=== PATIENT | male | born 1995 | race Caucasian/White ===

== ENCOUNTER → 2019-03-29 | Outpatient (CLI) | payer OTHER, SELFPAY ==
[2019-03-29 10:05] VITALS: BMI 32.1
== END | disposition home or self-care (01) ==
LOC: LABSPEC 14:39
PROVIDERS: Family Provider Pediatrics; PCP Pediatrics; Referring Provider Physician Assistant; Visit Provider Physician Assistant
DX: J02.9 Acute pharyngitis, unspecified (principal)
CPT/HCPCS: 87081

== ENCOUNTER → 2020-04-09 14:22 | Outpatient (CLI) | payer OTHER, SELFPAY ==
[2020-04-09 14:12] VITALS: BMI 31.6
--- NOTE | 2020-04-09 14:25 | RAD_ITS ---
STUDY: X-RAY CHEST REASON FOR EXAM: Male, 24 years old. Cough, pt states it feels like he has pneumonia TECHNIQUE: PA and lateral views of the chest. COMPARISON: Comparison is made with prior examination dated April 30, 2011. FINDINGS: The lungs are clear and expanded. There is no demonstrated pleural abnormality. Normal size heart. Normal mediastinum and ac. Normal visualized pulmonary arteries. Normal visualized aortic arch and descending thoracic aorta. Normal visualized thoracic spine. Normal visualized ribs, clavicles, and shoulders. There is no demonstrated abnormality of the visualized soft tissue structures of the upper abdomen. RAD/Chest PA and Lateral IMPRESSION: Normal x-ray examination of the chest. Electronically Signed: Nura Rubi, at 14:51 EDT , Service support ,
== END ==
PROVIDERS: PCP Pediatrics; Referring Provider Physician Assistant Surgical; Visit Provider Physician Assistant Surgical
DX: R05 Cough (principal)
CPT/HCPCS: 71046

== ENCOUNTER → 2021-06-19 10:28 | Outpatient (CLI) | payer OTHER, SELFPAY ==
[2021-06-19 12:47] LABS: Vitamin D,25 Hydroxy 31.2 ng/mL
[2021-06-19 13:05] LABS: Anion Gap 9 (5-15); BUN 18 mg/dL (7-18); BUN/Creat Ratio 17.3 RATIO (10-20); Calcium,Total 9.3 mg/dL (8.5-10.1); Chloride 103 mmol/L (98-107); Cholesterol 227 mg/dL (200); Creatinine, Serum 1.04 mg/dL (0.70-1.30); EST Glomerular Filtration Rate 94 mL/min (>60); Est Glom Filt Rate - Afr Amer 113 mL/min (>60); Glucose 88 mg/dL (74-106); High Density Lipoprotein 36 mg/dL; Potassium 3.8 mmol/L (3.5-5.1); Sodium Level 138 mmol/L (136-145); Thyroid Stim Hormone (TSH) 1.83 uIU/mL (0.358-3.74); Triglycerides 283 mg/dL; Very Low Density Lipoprotein 57 mg/dL (5-40)
== END ==
PROVIDERS: PCP Family Medicine; Referring Provider Family Medicine; Visit Provider Family Medicine
DX: Z00.00 Encounter for general adult medical examination without abnormal findings (principal); R68.82 Decreased libido
CPT/HCPCS: 36415; 80048; 80061; 82306; 84403; 84443

== ENCOUNTER → 2021-07-07 10:05 | Outpatient (CLI) | payer OTHER, SELFPAY ==
[2021-07-12 10:22] LABS: Testosterone Free 13.7 pg/mL (9.3-26.5)
== END ==
PROVIDERS: PCP Family Medicine; Referring Provider Family Medicine; Visit Provider Family Medicine
DX: R68.82 Decreased libido (principal)
CPT/HCPCS: 36415; 84402

== ENCOUNTER → 2021-07-14 09:52 | Outpatient (CLI) | payer OTHER, SELFPAY | PROVIDERS: PCP Family Medicine; Visit Provider Family Medicine | DX: R68.82 Decreased libido (principal) | CPT/HCPCS: 36415; 84403 ==

== ENCOUNTER → 2021-09-26 10:10 | Outpatient (CLI) | payer OTHER, SELFPAY | PROVIDERS: PCP Family Medicine; Referring Provider Family Medicine; Visit Provider Family Medicine | DX: R68.82 Decreased libido (principal) | CPT/HCPCS: 36415; 84403 ==

== ENCOUNTER 2022-01-30 11:05 | Outpatient (CLI) | payer OTHER, SELFPAY | END 2022-01-30 23:59 | disposition home or self-care (01) | PROVIDERS: PCP Family Medicine; Referring Provider Family Medicine; Visit Provider Family Medicine | DX: R68.82 Decreased libido (principal) | CPT/HCPCS: 36415; 84403 ==

== ENCOUNTER → 2023-11-10 | Outpatient (CLI) | payer BC, SELFPAY ==
[2023-11-10 17:37] LABS: Absolute Lymphocyte Count 1.78 X10^3/uL (0.83-4.51); Absolute Neutrophil Count 3.7 X10^3/uL (2.0-7.7); Basophil# 0.06 X10^3/uL; Basophil% 0.9 % (0-1); Eosinophil# 0.56 X10^3/uL; Eosinophils% 8.6 % (0-5); Hematocrit 44.5 % (40-54); Hemoglobin 15.4 g/dL (13.0-16.5); Lymphocyte # 1.78 X10^3/ul (0.83-4.51); Lymphocyte % 27.2 % (19-41); Mean Corp Hgb Conc 34.6 g/dL (32-36); Mean Corpuscular Hgb 30.1 pg (27.0-32.0); Mean Corpuscular Volume 86.9 fL (80-94); Mean Platelet Vol. 9.6 fl (6.2-12.0); Monocyte# 0.45 X10^3/uL; Monocyte% 6.9 % (0-10); NRBC Flagged by Analyzer 0 % (0-5); Neutrophil # 3.67 X10^3/uL (2.7-7.7); Neutrophil % 56.1 % (47-70); Platelet Count 255 K/mm3 (150-450); RBC Distribution Width CV 12.4 % (11.6-14.6); RBC Distribution Width SD 39.1 fl (35.1-43.9); Red Blood Count 5.12 M/mm3 (4.6-6.2); White Blood Count 6.5 K/mm3 (4.4-11.0)
[2023-11-10 18:10] LABS: Anion Gap 7 (5-15); BUN 9 mg/dL (7-18); BUN/Creat Ratio 8.2 RATIO (10-20); Calcium,Total 8.7 mg/dL (8.5-10.1); Chloride 107 mmol/L (98-107); Cholesterol 230 mg/dL (200); EST Glomerular Filtration Rate 86 mL/min (>60); Est Glom Filt Rate - Afr Amer 104 mL/min (>60); Glucose 94 mg/dL (74-106); High Density Lipoprotein 40 mg/dL; PSA,Total- Diagnostic 1.15 ng/mL (0.0-4.0); Potassium 3.7 mmol/L (3.5-5.1); Sodium Level 140 mmol/L (136-145); Triglycerides 193 mg/dL; Very Low Density Lipoprotein 39 mg/dL (5-40)
[2023-11-22 10:07] LABS: Testosterone, % Free 4.24 % (1.50-4.20); Testosterone, Free 44.22 ng/dL (5.00-21.00); Testosterone, Total 1043 ng/dL (264-916)
== END | disposition home or self-care (01) ==
LOC: MFPLAB 15:47
PROVIDERS: PCP Family Medicine; Visit Provider Family Medicine
DX: E29.1 Testicular hypofunction (principal); I10 Essential (primary) hypertension
CPT/HCPCS: 36415; 80048; 80061; 84153; 84402; 84403; 85025

== ENCOUNTER → 2024-05-10 | Outpatient (CLI) | payer BC, SELFPAY ==
[2024-05-10 17:42] LABS: Absolute Lymphocyte Count 1.74 X10^3/uL (0.83-4.51); Basophil# 0.04 X10^3/uL; Basophil% 0.7 % (0-1); Eosinophil# 0.42 X10^3/uL; Eosinophils% 7.5 % (0-5); Hematocrit 42.9 % (40-54); Hemoglobin 14.6 g/dL (13.0-16.5); Lymphocyte # 1.74 X10^3/ul (0.83-4.51); Lymphocyte % 31.2 % (19-41); Mean Corpuscular Hgb 29.7 pg (27.0-32.0); Mean Corpuscular Volume 87.2 fL (80-94); Mean Platelet Vol. 9.6 fl (6.2-12.0); Monocyte# 0.41 X10^3/uL; Monocyte% 7.3 % (0-10); NRBC Flagged by Analyzer 0 % (0-5); Neutrophil # 2.96 X10^3/uL (2.7-7.7); Neutrophil % 53.1 % (47-70); Platelet Count 244 K/mm3 (150-450); RBC Distribution Width CV 12.7 % (11.6-14.6); RBC Distribution Width SD 39.9 fl (35.1-43.9); Red Blood Count 4.92 M/mm3 (4.6-6.2); White Blood Count 5.6 K/mm3 (4.4-11.0)
[2024-05-10 17:53] LABS: ALB/GLOB Ratio 1.4 RATIO (0.9-2.4); AST(SGOT) 36 U/L (15-37); Alanine Aminotransfer ALT/SGPT 41 U/L (16-61); Albumin, Serum 4.3 g/dL (3.2-5.0); Alkaline Phosphatase 73 U/L (45-117); Anion Gap 8 (5-15); BUN 16 mg/dL (7-18); BUN/Creat Ratio 14.4 RATIO (10-20); Calcium,Total 9.2 mg/dL (8.5-10.1); Chloride 105 mmol/L (98-107); Cholesterol 191 mg/dL (200); Creatinine, Serum 1.11 mg/dL (0.70-1.30); EST Glomerular Filtration Rate 85 mL/min (>60); Est Glom Filt Rate - Afr Amer 103 mL/min (>60); Globulin 3.1 g/dL (2.2-4.2); Glucose 88 mg/dL (74-106); High Density Lipoprotein 40 mg/dL; Potassium 4.2 mmol/L (3.5-5.1); Protein, Total 7.4 g/dL (6.4-8.2); Sodium Level 138 mmol/L (136-145); Triglycerides 127 mg/dL; Very Low Density Lipoprotein 25 mg/dL (5-40)
== END | disposition home or self-care (01) ==
LOC: MFPLAB 13:57
PROVIDERS: PCP Family Medicine; Visit Provider Family Medicine
DX: E78.5 Hyperlipidemia, unspecified (principal)
CPT/HCPCS: 36415; 80053; 80061; 84403; 85025

== ENCOUNTER → 2024-06-22 | Outpatient (CLI) | payer BC, SELFPAY ==
[2024-06-22 17:55] LABS: Absolute Lymphocyte Count 1.51 X10^3/uL (0.83-4.51); Absolute Neutrophil Count 4.4 X10^3/uL (2.0-7.7); Basophil# 0.04 X10^3/uL; Basophil% 0.6 % (0-1); Eosinophil# 0.36 X10^3/uL; Eosinophils% 5.3 % (0-5); Hematocrit 44.2 % (40-54); Hemoglobin 15.1 g/dL (13.0-16.5); Lymphocyte # 1.51 X10^3/ul (0.83-4.51); Lymphocyte % 22.1 % (19-41); Mean Corp Hgb Conc 34.2 g/dL (32-36); Mean Corpuscular Hgb 30.4 pg (27.0-32.0); Mean Corpuscular Volume 88.9 fL (80-94); Mean Platelet Vol. 9.4 fl (6.2-12.0); Monocyte# 0.51 X10^3/uL; Monocyte% 7.5 % (0-10); NRBC Flagged by Analyzer 0 % (0-5); Neutrophil # 4.38 X10^3/uL (2.7-7.7); Neutrophil % 64.2 % (47-70); Platelet Count 260 K/mm3 (150-450); RBC Distribution Width CV 12.9 % (11.6-14.6); RBC Distribution Width SD 41.8 fl (35.1-43.9); Red Blood Count 4.97 M/mm3 (4.6-6.2); White Blood Count 6.8 K/mm3 (4.4-11.0)
== END | disposition home or self-care (01) ==
PROVIDERS: PCP Family Medicine; Visit Provider Family Medicine
DX: E29.1 Testicular hypofunction (principal)
CPT/HCPCS: 36415; 84403; 85025

== ENCOUNTER → 2024-10-25 | Outpatient (CLI) | payer BC, SELFPAY ==
[2024-10-25 17:49] LABS: Absolute Lymphocyte Count 1.66 X10^3/uL (0.83-4.51); Absolute Neutrophil Count 3.4 X10^3/uL (2.0-7.7); Basophil# 0.04 X10^3/uL; Basophil% 0.7 % (0-1); Eosinophil# 0.46 X10^3/uL; Eosinophils% 7.6 % (0-5); Lymphocyte # 1.66 X10^3/ul (0.83-4.51); Lymphocyte % 27.3 % (19-41); Mean Corp Hgb Conc 35.7 g/dL (32-36); Mean Corpuscular Hgb 29.7 pg (27.0-32.0); Mean Corpuscular Volume 83.2 fL (80-94); Mean Platelet Vol. 9.7 fl (6.2-12.0); Monocyte# 0.52 X10^3/uL; Monocyte% 8.5 % (0-10); NRBC Flagged by Analyzer 0 % (0-5); Neutrophil % 55.7 % (47-70); Platelet Count 237 K/mm3 (150-450); RBC Distribution Width CV 12.4 % (11.6-14.6); RBC Distribution Width SD 36.9 fl (35.1-43.9); Red Blood Count 5.05 M/mm3 (4.6-6.2); White Blood Count 6.1 K/mm3 (4.4-11.0)
[2024-10-25 18:17] LABS: Cholesterol 204 mg/dL (200); High Density Lipoprotein 45 mg/dL; Triglycerides 87 mg/dL; Very Low Density Lipoprotein 17 mg/dL (5-40)
== END | disposition home or self-care (01) ==
LOC: MTLAB 14:28
PROVIDERS: PCP Family Medicine; Referring Provider Family Medicine; Visit Provider Family Medicine
DX: E78.5 Hyperlipidemia, unspecified (principal)
CPT/HCPCS: 36415; 80061; 84403; 85025

== ENCOUNTER → 2025-03-01 | Outpatient (CLI) | payer BC, SELFPAY ==
[2025-03-01 15:27] LABS: Absolute Lymphocyte Count 1.44 X10^3/uL (0.83-4.51); Absolute Neutrophil Count 4.9 X10^3/uL (2.0-7.7); Basophil# 0.04 X10^3/uL; Basophil% 0.6 % (0-1); Eosinophil# 0.32 X10^3/uL; Eosinophils% 4.5 % (0-5); Hematocrit 45.3 % (40-54); Hemoglobin 16.2 g/dL (13.0-16.5); Lymphocyte # 1.44 X10^3/ul (0.83-4.51); Lymphocyte % 20.3 % (19-41); Mean Corp Hgb Conc 35.8 g/dL (32-36); Mean Corpuscular Hgb 29.8 pg (27.0-32.0); Mean Corpuscular Volume 83.4 fL (80-94); Mean Platelet Vol. 9.8 fl (6.2-12.0); Monocyte# 0.39 X10^3/uL; Monocyte% 5.5 % (0-10); NRBC Flagged by Analyzer 0 % (0-5); Neutrophil # 4.88 X10^3/uL (2.7-7.7); Neutrophil % 68.8 % (47-70); Platelet Count 262 K/mm3 (150-450); RBC Distribution Width SD 35.9 fl (35.1-43.9); Red Blood Count 5.43 M/mm3 (4.6-6.2); White Blood Count 7.1 K/mm3 (4.4-11.0)
[2025-03-01 16:20] LABS: ALB/GLOB Ratio 1.9 RATIO (0.9-2.4); AST(SGOT) 40 U/L (<=37); Alanine Aminotransfer ALT/SGPT 38 U/L (<=46); Albumin, Serum 4.9 g/dL (3.5-5.0); Alkaline Phosphatase 76 U/L (40-129); Anion Gap 14 (5-15); BUN 12 mg/dL (4-19); BUN/Creat Ratio 10.1 RATIO (10-20); Calcium,Total 9.3 mg/dL (7.6-11.0); Carbon Dioxide 21.5 mmol/L (21.0-32.0); Chloride 103 mmol/L (98-108); Cholesterol 156 mg/dL (<=200); Creatinine, Serum 1.22 mg/dL (0.70-1.20); EST Glomerular Filtration Rate 83 (>60); Globulin 2.5 g/dL (2.2-4.2); Glucose 92 mg/dL (70-99); High Density Lipoprotein 38 mg/dL; Low Density Lipoprotein Calc. 93 mg/dL; Protein, Total 7.4 g/dL (5.9-8.4); Sodium Level 138 mmol/L (133-145); Total Bilirubin 0.82 mg/dL (0.00-1.30); Triglycerides 127 mg/dL; Very Low Density Lipoprotein 25 mg/dL (5-40); cholesterol:hdl ratio screen 4.12
== END | disposition home or self-care (01) ==
LOC: MFPLAB 13:46
PROVIDERS: PCP Family Medicine; Referring Provider Family Medicine; Visit Provider Family Medicine
DX: E78.5 Hyperlipidemia, unspecified (principal)
CPT/HCPCS: 36415; 80053; 80061; 84403; 85025

== ENCOUNTER → 2025-10-19 | Outpatient (CLI) | payer BC, SELFPAY ==
--- OUTSIDE RECORDS SUMMARY | 2025-10-19 14:28 | XMS RPT_ITS | CCD ---
Author Organization [facility] Care Team Providers Care Allergist/Immunologist Physician Name Role Phone Unavailable Primary Care Provider UnavailRENÉ Conner Referring Unavailable Renetta DUNLAP, Dr. Merritt Primary Care Provider Renetta DUNLAP, Dr. Merritt Attending Provider [phone] Renetta DUNLAP, Dr. Merritt Referring Provider [phone] René Butts Attending Unavailable Renetta, René Primary Care Unavailable Renetta, René Attending Unavailable Renetta, René Referring Unavailable Renetta, René Primary Care Unavailable Renetta, René Attending Unavailable Renetta, René Referring Unavailable Renetta, René Primary Care Unavailable Renetta, René Attending Unavailable Renetta, René Primary Care Unavailable Allergies Allergy Classification Reported Allergen(s) Allergy Type Date of Onset Reaction(s) Facility (7 sources) Penicillins; Translations: [PENICILLINS] Allergy to substance 12-01-2005 [facility] Medications Current Medications Medication Drug Class(es) Dates Sig (Normalized) Sig (Original) azithromycin 250 mg oral tablet (6 sources) Macrolide Antimicrobial Start: 04-09-2020 End: 09-09-2020 Azithromycin 250 mg tablet Active 250 mg PO daily September 09, 2020 12:00am 2 tablets today, then 1 tablet daily on days 2 through 5 Start: 04-09-2020 End: 09-09-2020 take 2-5 tablets by mouth once daily Azithromycin 250 mg tablet Discontinued 0 PO .COMPLEX April 09, 2020 12:00am September 09, 2020 8:55am take 500 mg today (day 1), then 250 mg for 4 days (days 2-5) PO fluticasone propionate 0.05 mg/actuat metered dose nasal spray (5 sources) Corticosteroid Start: 09-09-2020 take 50 ug nasal route once daily Fluticasone Propionate (Flonase Allergy Relief) 50 mcg/actuation spray,suspension Active 1 NMA INTRANASAL DAILY September 09, 2020 12:00am administer into each nostril Start: 09-09-2020 take 1 spray(s) nasa l route once daily Fluticasone Propionate (Flonase Allergy Relief) 50 mcg/actuation spray,suspension Active 1 SPRAY INTRANASAL DAILY September 09, 2020 8:56am administer into each nostril Start: 12-20-2013 take 2 puff(s) by in halation twice daily fluticasone (FLOVENT HFA) 44 mcg/actuation inhaler Inhale 2 Puffs as instructed twice daily. 1 Inhaler 5 12/20/2013 Active Comment on above: Inhale 2 Puffs as in structed twice daily. Completed/Discontinued Medications Medication Drug Class(es) Dates Sig (Normalized) Sig (Original) [id number] actuat albuterol 0.09 mg/actuat metered dose inhaler (7 sources) beta2-Adrenergic Agonist Start: 11-02-2016 End: 03-29-2019 Albuterol Sulfate 1 INHALER inhaler Discontinued 1 - 2 NMA INHALATION EVERY 4 HOURS NEEDED as needed for Wheezing November 02, 2016 1:00am March 29, 2019 10:06am Start: 11-02-2016 End: 03-29-2019 take 1 puff(s) by inhalation every four hours as needed Albuterol Sulfate Discontinued 1 - 2 PUFF INHALATION EVERY 4 HOURS NEEDED November 02, 2016 9:27pm March 29, 2019 10:06am Start: 05-08-2015 take 2 puff(s) by in halation every four hours as needed albuterol HFA (PROVENTIL HFA, VENTOLIN HFA) 90 mcg/actuation inhaler Inhale 2 Puffs as instructed every 4 hours as needed. 1 Inhaler 4 05/08/2015 Active Start: 12-20-2013 take 2 puff(s) by in halation four times daily as needed for wheezing albuterol 90 mcg/actuation aero Indications: Exercise-induced asthma Inhale 2 Puffs as instructed four times daily as needed. FOR WHEEZING AND SHORTNESS OF BREATH. 1 Inhaler 2 12/20/2013 Active Comment on above: Inhale 2 Puffs as in structed four times daily as needed. FOR WHEEZING AND SHORTNESS OF BREATH. Inhale 2 Puffs as in structed every 4 hours as needed. cyclobenzaprine hydrochloride 10 mg oral tablet (3 sources) Muscle Relaxant Start: End: take 1 tablet by mouth three times daily as needed for muscle spasms Cyclobenzaprine 10 mg tablet Discontinued 10 mg PO THREE TIMES A DAY as needed for muscle spasm November 11, 2019 1:00am April 09, 2020 2:13pm No driving or operating heavy equipment while on this medication doxycycline hyclate 100 mg oral capsule (3 sources) Tetracycline-class Drug Start: End: take 1 capsule by mouth twice daily Doxycycline Hyclate 100 MG capsule Discontinued 100 mg PO TWICE A DAY November 02, 2016 1:00am March 29, 2019 10:06am ibuprofen 800 mg oral tablet (3 sources) Nonsteroidal Anti-inflammatory Drug Start: End: take 1 tablet by mouth three times daily Ibuprofen 800 mg tablet Discontinued 800 mg PO THREE TIMES A DAY November 11, 2019 1:00am April 09, 2020 2:13pm naproxen 500 mg oral tablet (2 sources) Nonsteroidal Anti-inflammatory Drug Start: take 1 tablet by mouth twice daily as needed for pain naproxen (NAPROSYN) 500 mg tablet Indications: Pain in right wrist Take 1 tablet by mouth twice daily as needed (pain/inflammation, take with food.). 30 tablet 0 05/03/2016 Active Comment on above: Take 1 tablet by [facility] twice daily as needed (pain/inflammation, take with food.). omeprazole 20 mg delayed release oral capsule (2 sources) Proton Pump Inhibitor Start: take 1 capsule by mouth once daily omeprazole 20 mg capsule Take 1 capsule by mouth once daily. 30 capsule 2 07/06/2014 Active Comment on above: Take 1 capsule by [facility] once daily. polymyxin b [id number] unt/ml / trimethoprim 1 mg/ml ophthalmic solution (6 sources) Dihydrofolate Reductase Inhibitor Antibacterial, Polymyxin-class Antibacterial Start: End: Polymyxin B Sulf-Trimethoprim (Polytrim) 10,000 unit- 1 mg/mL drops Discontinued 1 NMA OPHTHALMIC .qid 10 October 12, 2019 10:57am October 18, 2019 1:00am October 20, 2019 1:10am while awake; right eye, do not exceed 6 doses in 24 hours rosuvastatin calcium 5 mg oral tablet (2 sources) HMG-CoA Reductase Inhibitor take 1 tablet by mouth once daily rosuvastatin (CRESTOR) 5 mg tablet Take 5 mg by mouth once daily. 0 Active Comment on above: Take 5 mg by mouth o nce daily. testosterone cypionate 200 mg/ml injectable solution (2 sources) Androgen testosterone cypionate 200 mg/mL kit Inject intramuscularly one time a week. 0 Active Comment on above: Inject intramuscular ly one time a week. Problems Active Problems Problem Classification Problem Date Documented Date Episodic/Chronic Acute bronchitis (6 sources) Acute bronchitis; Translations: [Acute bronchitis, unspecified] 04-09-2020 Episodic Adjustment disorders (2 sources) Adjustment disorder; Translations: [Adjustment disorder, unspecified] Onset: 2011 2011 Chronic Administrative/social admission (3 sources) Administrative reason for encounter; Translations: [Encounter for other administrative examinations] 04-12-2020 Episodic Asthma (2 sources) Exercise-induced asthma; Translations: [Exercise induced bronchospasm] Onset: 12-05-2013 12-05-2013 Chronic Contraceptive and procreative management (2 sources) Patient encounter status; Translations: [Encounter for fertility testing] Episodic Disorders of lipid metabolism (1 source) Hyperlipidemia, unspecified; Translations: [Hyperlipidemia, unspecified] Onset: 03-02-2025 Chronic Other endocrine disorders (1 source) Testicular hypofunction; Translations: [Testicular hypofunction] Onset: 07-21-2024 Chronic Other lower respiratory disease (3 sources) Cough; Translations: [Cough] 04-09-2020 Episodic Other upper respiratory infections (6 sources) Upper respiratory infection; Translations: [Acute upper respiratory infection, unspecified] 03-29-2019 Episodic Sprains and strains (3 sources) Low back strain; Translations: [Strain of muscle, fascia and tendon of lower back, initial encounter] 11-11-2019 Episodic Past or Other Problems Problem Classification Problem Date Documented Da te Episodic/Chronic Other non-traumatic joint disorders (2 sources) Bilateral instability of shoulder joints; Translations: [Other instability, right shoulder] Onset: 05-21-2014 05-21-2014 Episodic Unclassified (2 sources) BB removed from upper lip 06-13-2022 Comment on above: 2014 Results Test Name Value Interpretation Reference Range Facility Absolute neutrophil countOrd ered By: René Butts on 03-01-2025 Neutrophils (Bld) [#/Vol] 4.9 10*3/uL 2.0-7.7 Anion gap in Serum or Plasma Ordered By: René Butts on 03-01-2025 Anion gap [Moles/Vol] 14 mmol/L 5-15 [facility] BUN/creatinine ratioOrdered By: René Butts on 03-01-2025 Urea nitrogen/Creatinine [Mass ratio] 10.1 mg/mg 10-20 Basophil percentageOrdered B y: René Butts on 03-01-2025 Basophils/100 WBC (Bld) 0.6 % 0-1 [facility] Bilirubin, totalOrdered By: René Butts on 03-01-2025 Bilirubin [Mass/Vol] 0.82 mg/dL 0.00-1.30 [facility] CBC W/Diff, Automatedon 02-13 Absolute Lymph 1.44 X10 3/uL Normal 0.83-4.51 Comment on above: Performed By: #### L 500.4100, L509.3001, L100.0100, L500.4050 #### Laboratory [address] [place], [address] Absolute Neut 4.9 X10 3/uL Normal 2.0-7.7 Comment on above: Performed By: #### L 500.4100, L509.3001, L100.0100, L500.4050 #### Laboratory [address] [place], [address] Basophils/100 WBC (Bld) 0.6 % Normal 0-1 [facility] Comment on above: Performed By: #### L 500.4100, L509.3001, L100.0100, L500.4050 #### Laboratory [address] [place], [address] Eosinophils/100 WBC (Bld) 4.5 % Normal 0-5 Comment on above: Performed By: #### L 500.4100, L509.3001, L100.0100, L500.4050 #### Laboratory [address] [place], [address] Erythrocyte distribution width (RBC) [Ratio] 12.0 % Normal 11.6-14.6 Comment on above: Performed By: #### L 500.4100, L509.3001, L100.0100, L500.4050 #### Laboratory [address] [place], [address] Hematocrit (Bld) [Volume fraction] 45.3 % Normal 40-54 Comment on above: Performed By: #### L 500.4100, L509.3001, L100.0100, L500.4050 #### Laboratory [address] [place], [address] Hemoglobin (Bld) [Mass/Vol] 16.2 g/dL Normal 13.0-16.5 Comment on above: Performed By: #### L 500.4100, L509.3001, L100.0100, L500.4050 #### Laboratory [address] [place], [address] IG% 0.300 Normal 0.0-0.9 Comment on above: Result Comment: IG% - Immature Granulocytes (promyelocytes, myelocytes and metamyelocytes) > 1% indicates that a LEFT SHIFT is Present. Performed By: #### L 500.4100, L509.3001, L100.0100, L500.4050 #### Laboratory [address] [place], [address] Lymphocytes/100 WBC (Bld) 20.3 % Normal 19-41 Comment on above: Performed By: #### L 500.4100, L509.3001, L100.0100, L500.4050 #### Laboratory [address] [place], [address] MCH (RBC) [Entitic mass] 29.8 pg Normal 27.0-32.0 Comment on above: Performed By: #### L 500.4100, L509.3001, L100.0100, L500.4050 #### Laboratory [address] [place], [address] MCHC (RBC) [Mass/Vol] 35.8 g/dL Normal 32-36 [facility] Comment on above: Performed By: #### L 500.4100, L509.3001, L100.0100, L500.4050 #### Laboratory [address] [place], [address] MCV (RBC) [Entitic vol] 83.4 fL Normal 80-94 [facility] Comment on above: Performed By: #### L 500.4100, L509.3001, L100.0100, L500.4050 #### Laboratory [address] [place], [address] Monocytes/100 WBC (Bld) 5.5 % Normal 0-10 [facility] Comment on above: Performed By: #### L 500.4100, L509.3001, L100.0100, L500.4050 #### Laboratory [address] [place], [address] Neutrophils/100 WBC (Bld) 68.8 % Normal 47-70 Comment on above: Performed By: #### L 500.4100, L509.3001, L100.0100, L500.4050 #### Laboratory [address] [place], [address] Nucleated RBC (Bld) [#/Vol] 0 10*3/uL Normal 0-5 Comment on above: Performed By: #### L 500.4100, L509.3001, L100.0100, L500.4050 #### Laboratory [address] [place], [address] Platelet mean volume (Bld) [Entitic vol] 9.8 fL Normal 6.2-12.0 Comment on above: Performed By: #### L 500.4100, L509.3001, L100.0100, L500.4050 #### Laboratory [address] [place], [address] Platelets (Bld) [#/Vol] 262 10*3/uL Normal 150-450 Comment on above: Performed By: #### L 500.4100, L509.3001, L100.0100, L500.4050 #### Laboratory [address] [place], [address] RBC (Bld) [#/Vol] 5.43 10*6/uL Normal 4.6-6.2 [facility] Comment on above: Performed By: #### L 500.4100, L509.3001, L100.0100, L500.4050 #### Laboratory [address] [place], [address] RDW SD 35.9 fl Normal 35.1-43.9 Comment on above: Performed By: #### L 500.4100, L509.3001, L100.0100, L500.4050 #### Laboratory [address] [place], [address] WBC (Bld) [#/Vol] 7.1 10*3/uL Normal 4.4-11.0 [facility] Comment on above: Performed By: #### L 500.4100, L509.3001, L100.0100, L500.4050 #### Laboratory [address] [place], [address] Calculated very low density lipoprotein (VLDL) cholesterol measurementOrdered By: René Butts on 03-01-2025 VLDL Cholesterol 25 mg/dL 5-40 Carbon dioxide, total [Moles /volume] in Central venous bloodOrdered By: René Butts on 03-01-2025 CO2 [Moles/Vol] 21.5 mmol/L 21.0-32.0 Chloride assayOrdered By: Tyler Butts on 03-01-2025 Chloride [Moles/Vol] 103 mmol/L 98-108 [facility] Comprehensive Metabolic Prof ilon 03-01-2025 Albumin [Mass/Vol] 4.9 g/dL Normal 3.5-5.0 [facility] Comment on above: Performed By: #### L 500.4100, L100.0100, L509.3000, L500.4050 #### Laboratory [address] [place], [address] Albumin/Globulin [Mass ratio] 1.9 {ratio} Normal 0.9-2.4 Comment on above: Performed By: #### L 500.4100, L100.0100, L509.3000, L500.4050 #### Laboratory [address] [place], [address] ALK PHOS 76 U/L Normal 40-129 Comment on above: Performed By: #### L 500.4100, L100.0100, L509.3000, L500.4050 #### Laboratory [address] [place], [address] ALT [Catalytic activity/Vol] 38 U/L Normal <=46 Comment on above: Performed By: #### L 500.4100, L100.0100, L509.3000, L500.4050 #### Laboratory [address] [place], [address] AST [Catalytic activity/Vol] 40 U/L High <=37 Comment on above: Performed By: #### L 500.4100, L100.0100, L509.3000, L500.4050 #### Laboratory [address] [place], [address] Bilirubin [Mass/Vol] 0.82 mg/dL Normal 0.00-1.30 [facility] Comment on above: Performed By: #### L 500.4100, L100.0100, L509.3000, L500.4050 #### Laboratory [address] [place], [address] BUN/CRE 10.1 RATIO Normal 10-20 Comment on above: Performed By: #### L 500.4100, L100.0100, L509.3000, L500.4050 #### Laboratory [address] [place], [address] Calcium [Mass/Vol] 9.3 mg/dL Normal 7.6-11.0 [facility] Comment on above: Performed By: #### L 500.4100, L100.0100, L509.3000, L500.4050 #### Laboratory [address] [place], [address] Chloride [Moles/Vol] 103 mmol/L Normal 98-108 [facility] Comment on above: Performed By: #### L 500.4100, L100.0100, L509.3000, L500.4050 #### Laboratory [address] [place], [address] CO2 [Moles/Vol] 21.5 mmol/L Normal 21.0-32.0 Comment on above: Performed By: #### L 500.4100, L100.0100, L509.3000, L500.4050 #### Laboratory [address] [place], [address] Creatinine [Mass/Vol] 1.22 mg/dL High 0.70-1.20 [facility] Comment on above: Performed By: #### L 500.4100, L100.0100, L509.3000, L500.4050 #### Laboratory [address] [place], [address] GAP 14 Normal 5-15 Comment on above: Performed By: #### L 500.4100, L100.0100, L509.3000, L500.4050 #### Laboratory [address] [place], [address] GFR/1.73 sq M.predicted among non-blacks MDRD (S/P/Bld) [Vol rate/Area] 83 mL/min/{1.73_m2} Normal >60 [facility] Comment on above: Result Comment: mL/m in/1.73m2 CKD-EPI Creatinine Equation (2020) Performed By: #### L 500.4100, L100.0100, L509.3000, L500.4050 #### Laboratory [address] [place], [address] Globulin (S) [Mass/Vol] 2.5 g/dL Normal 2.2-4.2 [facility] Comment on above: Performed By: #### L 500.4100, L100.0100, L509.3000, L500.4050 #### Laboratory [address] [place], [address] Glucose [Mass/Vol] 92 mg/dL Normal 70-99 [facility] Comment on above: Performed By: #### L 500.4100, L100.0100, L509.3000, L500.4050 #### Laboratory [address] [place], [address] Potassium [Moles/Vol] 4.0 mmol/L Normal 3.3-5.1 [facility] Comment on above: Performed By: #### L 500.4100, L100.0100, L509.3000, L500.4050 #### Laboratory [address] [place], [address] Sodium [Moles/Vol] 138 mmol/L Normal 133-145 [facility] Comment on above: Performed By: #### L 500.4100, L100.0100, L509.3000, L500.4050 #### Laboratory [address] [place], [address] T PROT 7.4 g/dL Normal 5.9-8.4 Comment on above: Performed By: #### L 500.4100, L100.0100, L509.3000, L500.4050 #### Laboratory [address] [place], [address] Urea nitrogen [Mass/Vol] 12 mg/dL Normal 4-19 Comment on above: Performed By: #### L 500.4100, L100.0100, L509.3000, L500.4050 #### Laboratory [address] [place], [address] Eosinophil percentageOrdered By: René Butts on 03-01-2025 Eosinophils/100 WBC (Bld) 4.5 % 0-5 Erythrocyte distribution wid th (RBC) [Ratio]Ordered By: René Butts on 03-01-2025 Erythrocyte distribution width (RBC) [Entitic vol] 35.9 fL 35.1-43.9 [facility] Erythrocyte distribution wid th ratioOrdered By: René Butts on 03-01-2025 Erythrocyte distribution width (RBC) [Ratio] 12.0 % 11.6-14.6 GFR/1.73 sq M.predicted manuela g non-blacks MDRD (S/P/Bld) [Vol rate/Area]Ordered By: René Butts on 03-01-2025 Estimated GFR (MDRD) Non-Af Amer 83 >60 Comment on above: mL/min/1.73m2 CKD-EP I Creatinine Equation (2020) Hematocrit Auto (Bld) [Volum e fraction]Ordered By: René Butts on 03-01-2025 Hematocrit (Bld) [Volume fraction] 45.3 % 40-54 Hemoglobin measurementOrdere d By: René Butts on 03-01-2025 Hemoglobin (Bld) [Mass/Vol] 16.2 g/dL 13.0-16.5 Immature granulocytes/100 WB C Auto (Bld)Ordered By: René Butts on 03-01-2025 Immature granulocytes/100 WBC (Bld) 0.300 % 0.0-0.9 Comment on above: IG% - Immature Granu locytes (promyelocytes, myelocytes and metamyelocytes) > 1% indicates that a LEFT SHIFT is Present. L509.3001on 03-01-2025 Testosterone [Mass/Vol] 186.00 ng/dL Low 300-1080 Comment on above: Performed By: #### L 500.4100, L100.0100, L509.3000, L500.4050 #### Laboratory [address] [place], [place], [id number] LDL calc ser/plasOrdered By: René Butts on 03-01-2025 LDL Cholesterol, Calculated 93 mg/dL Comment on above: Zlckbzzqwu=993-033 m g/dL & Higher Dliv=853 mg/dL or greater Laboratory - Chemistry and C hemistry - challengeOrdered By: René Butts on 03-01-2025 AST [Catalytic activity/Vol] 40 U/L High <38 Testosterone [Mass/Vol] 186.00 ng/dL Low 300-1080 Lipid Profileon 03-01-2025 CHOL:HDL 4.12 Normal Comment on above: Performed By: #### L 500.4100, L100.0100, L509.3000, L500.4050 #### Laboratory [address] [place], [address] Cholesterol [Mass/Vol] 156 mg/dL Normal <=200 [facility] Comment on above: Result Comment: Chol esterol level, Desirable <200 mg/dL Borderline high cholesterol 200-239 mg/dL High cholesterol >=240 mg/dL Recommendations of the NCEP Adult Treatment Panel for the following risk-cutoff thresholds for the [place] population. Performed By: #### L 500.4100, L100.0100, L509.3000, L500.4050 #### Laboratory [address] [place], [address] Cholesterol in HDL [Mass/Vol] 38 mg/dL Low Comment on above: Result Comment: [place] Cholesterol Education Program (NCEP) guidelines: <40 mg/dL: Low HDL-cholesterol (major risk factor for CHD) >= 60 mg/dL: High HDL-cholesterol (negative risk factor for CHD) HDL-cholesterol is affected by a number of factors, e.g. smoking, exercise, hormones, sex and age. Performed By: #### L 500.4100, L100.0100, L509.3000, L500.4050 #### Laboratory [address] [place], [address] Cholesterol in LDL [Mass/Vol] 93 mg/dL Normal Comment on above: Result Comment: Bord vimtnn=694-401 mg/dL Higher Iosx=852 mg/dL or greater Performed By: #### L 500.4100, L100.0100, L509.3000, L500.4050 #### Laboratory [address] [place], [address] Cholesterol in VLDL [Mass/Vol] 25 mg/dL Normal 5-40 Comment on above: Performed By: #### L 500.4100, L100.0100, L509.3000, L500.4050 #### Laboratory [address] [place], [address] Triglyceride [Mass/Vol] 127 mg/dL Normal [facility] Comment on above: Result Comment: The drugs N-Acetylcysteine and Metamizole may falsely depress this assay. Normal range: <150 mg/dL Borderline High: 150-199 mg/dL High: 200-499 mg/dL Very High: >500 mg/dL Performed By: #### L 500.4100, L100.0100, L509.3000, L500.4050 #### Laboratory [address] [place], [address] Lymphocytes Auto (Unsp spec) [#/Vol]Ordered By: René Butts on 03-01-2025 Lymphocytes (Bld) [#/Vol] 1.44 10*3/uL 0.83-4.5 1 Lymphocytes/100 WBC Auto (Un sp spec)Ordered By: René Butts on 03-01-2025 Lymphocytes/100 WBC (Bld) 20.3 % 19-41 MCV (mean corpuscular volume ) determinationOrdered By: René Butts on 03-01-2025 MCV (RBC) [Entitic vol] 83.4 fL 80-94 [facility] Mean corpuscular hemoglobin (MCH) determinationOrdered By: René Butts on 03-01-2025 MCH (RBC) [Entitic mass] 29.8 pg 27.0-32.0 Mean corpuscular hemoglobin concentration (MCHC) determinationOrdered By: René Butts on 03-01-2025 MCHC (RBC) [Mass/Vol] 35.8 g/dL 32-36 [facility] Mean platelet volume determi nationOrdered By: René Butts on 03-01-2025 Platelet mean volume (Bld) [Entitic vol] 9.8 fL 6.2-12.0 Monocyte percentageOrdered B y: René Butts on 03-01-2025 Monocytes/100 WBC (Bld) 5.5 % 0-10 [facility] Neutrophil percentageOrdered By: René Butts on 03-01-2025 Neutrophils/100 WBC (Bld) 68.8 % 47-70 Nucleated red blood cell per centageOrdered By: René Butts on 03-01-2025 Nucleated RBC/100 WBC (Bld) [Ratio] 0 % 0-5 Platelet countOrdered By: Tyler Butts on 03-01-2025 Platelets (Bld) [#/Vol] 262 10*3/uL 150-450 Potassium (Unsp spec) [Mass/ Vol]Ordered By: René Butts on 03-01-2025 Potassium [Moles/Vol] 4.0 mmol/L 3.3-5.1 [facility] RBC Auto (Bld) [#/Vol]Ordere d By: René Butts on 03-01-2025 RBC (Bld) [#/Vol] 5.43 10*6/uL 4.6-6.2 [facility] Screening total cholesterol/ high density lipoprotein (HDL) cholesterol ratioOrdered By: René Butts on 03-01-2025 Cholesterol.total/Cholest carlos in HDL [Mass ratio] 4.12 {ratio} Serum creatinine measurement (mass/volume)Ordered By: René Butts on 03-01-2025 Creatinine [Mass/Vol] 1.22 mg/dL High 0.70-1.20 [facility] Serum globulin measurementOr dered By: René Butts on 03-01-2025 Globulin (S) [Mass/Vol] 2.5 g/dL 2.2-4.2 [facility] Serum glucose measurement (m ass/volume)Ordered By: René Butts on 03-01-2025 Glucose [Mass/Vol] 92 mg/dL 70-99 [facility] Serum or plasma alanine linda otransferase (ALT) measurementOrdered By: René Butts on 03-01-2025 ALT [Catalytic activity/Vol] 38 U/L <47 Serum or plasma albumin walt urement (mass/volume)Ordered By: René Butts on 03-01-2025 Albumin [Mass/Vol] 4.9 g/dL 3.5-5.0 [facility] Serum or plasma albumin/glob ulin mass ratioOrdered By: René Butts on 03-01-2025 Albumin/Globulin [Mass ratio] 1.9 {ratio} 0.9-2.4 Serum or plasma alkaline deanna sphatase measurementOrdered By: René Butts on 03-01-2025 ALP [Catalytic activity/Vol] 76 U/L 40-129 Serum or plasma calcium walt urement (mass/volume)Ordered By: René Butts on 03-01-2025 Calcium [Mass/Vol] 9.3 mg/dL 7.6-11.0 [facility] Serum or plasma cholesterol in HDL measurement (mass/volume)Ordered By: René Butts on 03-01-2025 Cholesterol in HDL [Mass/Vol] 38 mg/dL Low >40 Comment on above: National Cholesterol Education Program (NCEP) guidelines:<40 mg/dL: Low HDL-cholesterol (major risk factor for CHD)>= 60 mg/dL: High HDL-cholesterol (negative risk factor for CHD)HDL-cholesterol is affected by a number of factors, e.g. smoking, exercise, hormones, sex and age. Serum or plasma cholesterol measurement (mass/volume)Ordered By: René Butts on 03-01-2025 Cholesterol [Mass/Vol] 156 mg/dL <201 [facility] Comment on above: Cholesterol level, D esirable <200 mg/dLBorderline high cholesterol 200-239 mg/dLHigh cholesterol >=240 mg/dLRecommendations of the NCEP Adult Treatment Panel for the following risk-cutoff thresholds for the [place] population. Serum or plasma urea nitroge n measurement (mass/volume)Ordered By: René Butts on 03-01-2025 Urea nitrogen [Mass/Vol] 12 mg/dL 4-19 Sodium levelOrdered By: René Butts on 03-01-2025 Sodium [Moles/Vol] 138 mmol/L 133-145 [facility] Total proteinOrdered By: Anahi Butts on 03-01-2025 Protein [Mass/Vol] 7.4 g/dL 5.9-8.4 [facility] Triglycerides measurementOrd ered By: René Butts on 03-01-2025 Triglyceride [Mass/Vol] 127 mg/dL <199 [facility] Comment on above: The drugs N-Acetylcy steine and Metamizole may falsely depress this assay. Normal range: <150 mg/dLBorderline High: 150-199 mg/dLHigh: 200-499 mg/dLVery High: >500 mg/dL White blood cell (WBC) count Ordered By: René Butts on 03-01-2025 WBC (Bld) [#/Vol] 7.1 10*3/uL 4.4-11.0 [facility] CBC W/Diff, Automatedon 12- Absolute Lymph 1.66 X10 3/uL Normal 0.83-4.51 Comment on above: Performed By: #### L 509.3000, L100.0100, L500.4100 #### Laboratory [address] [place], [address] Absolute Neut 3.4 X10 3/uL Normal 2.0-7.7 Comment on above: Performed By: #### L 509.3000, L100.0100, L500.4100 #### Laboratory [address] [place], [address] Basophils/100 WBC (Bld) 0.7 % Normal 0-1 [facility] Comment on above: Performed By: #### L 509.3000, L100.0100, L500.4100 #### Laboratory [address] [place], [address] Eosinophils/100 WBC (Bld) 7.6 % High 0-5 Comment on above: Performed By: #### L 509.3000, L100.0100, L500.4100 #### Laboratory [address] [place], [address] Erythrocyte distribution width (RBC) [Ratio] 12.4 % Normal 11.6-14.6 Comment on above: Performed By: #### L 509.3000, L100.0100, L500.4100 #### Laboratory [address] [place], [address] Hematocrit (Bld) [Volume fraction] 42.0 % Normal 40-54 Comment on above: Performed By: #### L 509.3000, L100.0100, L500.4100 #### Laboratory [address] [place], [address] Hemoglobin (Bld) [Mass/Vol] 15.0 g/dL Normal 13.0-16.5 Comment on above: Performed By: #### L 509.3000, L100.0100, L500.4100 #### Laboratory [address] [place], [address] IG% 0.200 Normal 0.0-0.9 Comment on above: Result Comment: IG% - Immature Granulocytes (promyelocytes, myelocytes and metamyelocytes) > 1% indicates that a LEFT SHIFT is Present. Performed By: #### L 509.3000, L100.0100, L500.4100 #### Laboratory [address] [place], [address] Lymphocytes/100 WBC (Bld) 27.3 % Normal 19-41 Comment on above: Performed By: #### L 509.3000, L100.0100, L500.4100 #### Laboratory [address] [place], [address] MCH (RBC) [Entitic mass] 29.7 pg Normal 27.0-32.0 Comment on above: Performed By: #### L 509.3000, L100.0100, L500.4100 #### Laboratory [address] [place], [address] MCHC (RBC) [Mass/Vol] 35.7 g/dL Normal 32-36 [facility] Comment on above: Performed By: #### L 509.3000, L100.0100, L500.4100 #### Laboratory [address] [place], [address] MCV (RBC) [Entitic vol] 83.2 fL Normal 80-94 [facility] Comment on above: Performed By: #### L 509.3000, L100.0100, L500.4100 #### Laboratory [address] [place], [address] Monocytes/100 WBC (Bld) 8.5 % Normal 0-10 [facility] Comment on above: Performed By: #### L 509.3000, L100.0100, L500.4100 #### Laboratory [address] [place], [address] Neutrophils/100 WBC (Bld) 55.7 % Normal 47-70 Comment on above: Performed By: #### L 509.3000, L100.0100, L500.4100 #### Laboratory [address] [place], [address] Nucleated RBC (Bld) [#/Vol] 0 10*3/uL Normal 0-5 Comment on above: Performed By: #### L 509.3000, L100.0100, L500.4100 #### Laboratory [address] [place], [address] Platelet mean volume (Bld) [Entitic vol] 9.7 fL Normal 6.2-12.0 Comment on above: Performed By: #### L 509.3000, L100.0100, L500.4100 #### Laboratory [address] [place], [address] Platelets (Bld) [#/Vol] 237 10*3/uL Normal 150-450 Comment on above: Performed By: #### L 509.3000, L100.0100, L500.4100 #### Laboratory [address] [place], [address] RBC (Bld) [#/Vol] 5.05 10*6/uL Normal 4.6-6.2 [facility] Comment on above: Performed By: #### L 509.3000, L100.0100, L500.4100 #### Laboratory [address] [place], [address] RDW SD 36.9 fl Normal 35.1-43.9 Comment on above: Performed By: #### L 509.3000, L100.0100, L500.4100 #### Laboratory [address] [place], [address] WBC (Bld) [#/Vol] 6.1 10*3/uL Normal 4.4-11.0 [facility] Comment on above: Performed By: #### L 509.3000, L100.0100, L500.4100 #### Laboratory [address] [place], [address] Lipid Profileon 10-25-2024 Cholesterol [Mass/Vol] 204 mg/dL High 200 [facility] Comment on above: Result Comment: <200 mg/dL Desirable 200-240 mg/dL Borderline >240 mg/dL High Risk Performed By: #### L 509.3000, L100.0100, L500.4100 #### Laboratory [address] [place], [address] Cholesterol in HDL [Mass/Vol] 45 mg/dL Normal Comment on above: Result Comment: The drugs N-Acetylcysteine and Metamizole may falsely depress this assay. Reference Range HDL <40 mg/dL Low HDL Cholesterol HDL >or= 60 mg/dL High HDL Cholesterol Performed By: #### L 509.3000, L100.0100, L500.4100 #### Laboratory [address] [place], [address] Cholesterol in LDL [Mass/Vol] 142 mg/dL High 0-130 Comment on above: Performed By: #### L 509.3000, L100.0100, L500.4100 #### Laboratory [address] [place], [address] Cholesterol in VLDL [Mass/Vol] 17 mg/dL Normal 5-40 Comment on above: Performed By: #### L 509.3000, L100.0100, L500.4100 #### Laboratory [address] [place], [address] Triglyceride [Mass/Vol] 87 mg/dL Normal [facility] Comment on above: Result Comment: The drugs N-Acetylcysteine and Metamizole may falsely depress this assay. Serum Triglycerides Reference Interval Normal <150 mg/dL Borderline high 150 - 199 mg/dL High 200 - 499 mg/dL Very High > or = 500 mg/dL Performed By: #### L 509.3000, L100.0100, L500.4100 #### Laboratory [address] [place], [address] Testosterone, Serum Totalon 10-25-2024 Testosterone [Mass/Vol] 213.77 ng/dL Normal Comment on above: Result Comment: CENT RAL 90% REFERENCE RANGES MALE AGE <50 197.44 - 669.58 ng/dL MALE AGE > or = 50 187.72 - 684.19 ng/dL FEMALE AGE <50 8.38 - 35.01 ng/dL FEMALE AGE > or = 50 <7.00 - 35.92 ng/dL Effective as of 06/10/21 Performed By: #### L 509.3000, L100.0100, L500.4100 #### Laboratory [address] [place], [address] CBC W/Diff, Automatedon 08-0 Absolute Lymph 1.51 X10 3/uL Normal 0.83-4.51 Comment on above: Performed By: #### L 509.3000, L100.0100 #### Laboratory [address] [place], [address] Absolute Neut 4.4 X10 3/uL Normal 2.0-7.7 Comment on above: Performed By: #### L 509.3000, L100.0100 #### Laboratory [address] [place], [address] Basophils/100 WBC (Bld) 0.6 % Normal 0-1 [facility] Comment on above: Performed By: #### L 509.3000, L100.0100 #### Laboratory [address] [place], [address] Eosinophils/100 WBC (Bld) 5.3 % High 0-5 Comment on above: Performed By: #### L 509.3000, L100.0100 #### Laboratory [address] [place], [address] Erythrocyte distribution width (RBC) [Ratio] 12.9 % Normal 11.6-14.6 Comment on above: Performed By: #### L 509.3000, L100.0100 #### Laboratory [address] [place], [address] Hematocrit (Bld) [Volume fraction] 44.2 % Normal 40-54 Comment on above: Performed By: #### L 509.3000, L100.0100 #### Laboratory [address] [place], [address] Hemoglobin (Bld) [Mass/Vol] 15.1 g/dL Normal 13.0-16.5 Comment on above: Performed By: #### L 509.3000, L100.0100 #### Laboratory [address] [place], [address] IG% 0.300 Normal 0.0-0.9 Comment on above: Result Comment: IG% - Immature Granulocytes (promyelocytes, myelocytes and metamyelocytes) > 1% indicates that a LEFT SHIFT is Present. Performed By: #### L 509.3000, L100.0100 #### Laboratory [address] [place], [address] Lymphocytes/100 WBC (Bld) 22.1 % Normal 19-41 Comment on above: Performed By: #### L 509.3000, L100.0100 #### Laboratory [address] [place], [address] MCH (RBC) [Entitic mass] 30.4 pg Normal 27.0-32.0 Comment on above: Performed By: #### L 509.3000, L100.0100 #### Laboratory [address] [place], [address] MCHC (RBC) [Mass/Vol] 34.2 g/dL Normal 32-36 [facility] Comment on above: Performed By: #### L 509.3000, L100.0100 #### Laboratory [address] [place], [address] MCV (RBC) [Entitic vol] 88.9 fL Normal 80-94 [facility] Comment on above: Performed By: #### L 509.3000, L100.0100 #### Laboratory [address] [place], [address] Monocytes/100 WBC (Bld) 7.5 % Normal 0-10 [facility] Comment on above: Performed By: #### L 509.3000, L100.0100 #### Laboratory [address] [place], [address] Neutrophils/100 WBC (Bld) 64.2 % Normal 47-70 Comment on above: Performed By: #### L 509.3000, L100.0100 #### Laboratory [address] [place], [address] Nucleated RBC (Bld) [#/Vol] 0 10*3/uL Normal 0-5 Comment on above: Performed By: #### L 509.3000, L100.0100 #### Laboratory [address] [place], [address] Platelet mean volume (Bld) [Entitic vol] 9.4 fL Normal 6.2-12.0 Comment on above: Performed By: #### L 509.3000, L100.0100 #### Laboratory [address] [place], [address] Platelets (Bld) [#/Vol] 260 10*3/uL Normal 150-450 Comment on above: Performed By: #### L 509.3000, L100.0100 #### Laboratory [address] [place], [address] RBC (Bld) [#/Vol] 4.97 10*6/uL Normal 4.6-6.2 [facility] Comment on above: Performed By: #### L 509.3000, L100.0100 #### Laboratory [address] [place], [address] RDW SD 41.8 fl Normal 35.1-43.9 Comment on above: Performed By: #### L 509.3000, L100.0100 #### Laboratory [address] [place], [address] WBC (Bld) [#/Vol] 6.8 10*3/uL Normal 4.4-11.0 [facility] Comment on above: Performed By: #### L 509.3000, L100.0100 #### Laboratory [address] [place], [address] Testosterone, Serum Totalon 06-22-2024 Testosterone [Mass/Vol] 1155.43 ng/dL Normal Comment on above: Result Comment: CENT RAL 90% REFERENCE RANGES MALE AGE <50 197.44 - 669.58 ng/dL MALE AGE > or = 50 187.72 - 684.19 ng/dL FEMALE AGE <50 8.38 - 35.01 ng/dL FEMALE AGE > or = 50 <7.00 - 35.92 ng/dL Effective as of 06/10/21 Performed By: #### L 509.3000, L100.0100 #### Laboratory [address] [place], [address] CBC W/Diff, Automatedon - Absolute Lymph 1.74 X10 3/uL Normal 0.83-4.51 Comment on above: Performed By: #### L 500.4100, L100.0100, L509.3000, L500.4050 #### Laboratory [address] [place], [address] Absolute Neut 3.0 X10 3/uL Normal 2.0-7.7 Comment on above: Performed By: #### L 500.4100, L100.0100, L509.3000, L500.4050 #### Laboratory [address] [place], [address] Basophils/100 WBC (Bld) 0.7 % Normal 0-1 [facility] Comment on above: Performed By: #### L 500.4100, L100.0100, L509.3000, L500.4050 #### Laboratory [address] [place], [address] Eosinophils/100 WBC (Bld) 7.5 % High 0-5 Comment on above: Performed By: #### L 500.4100, L100.0100, L509.3000, L500.4050 #### Laboratory [address] [place], [address] Erythrocyte distribution width (RBC) [Ratio] 12.7 % Normal 11.6-14.6 Comment on above: Performed By: #### L 500.4100, L100.0100, L509.3000, L500.4050 #### Laboratory [address] [place], [address] Hematocrit (Bld) [Volume fraction] 42.9 % Normal 40-54 Comment on above: Performed By: #### L 500.4100, L100.0100, L509.3000, L500.4050 #### Laboratory [address] [place], [address] Hemoglobin (Bld) [Mass/Vol] 14.6 g/dL Normal 13.0-16.5 Comment on above: Performed By: #### L 500.4100, L100.0100, L509.3000, L500.4050 #### Laboratory [address] [place], [address] IG% 0.200 Normal 0.0-0.9 Comment on above: Result Comment: IG% - Immature Granulocytes (promyelocytes, myelocytes and metamyelocytes) > 1% indicates that a LEFT SHIFT is Present. Performed By: #### L 500.4100, L100.0100, L509.3000, L500.4050 #### Laboratory [address] [place], [address] Lymphocytes/100 WBC (Bld) 31.2 % Normal 19-41 Comment on above: Performed By: #### L 500.4100, L100.0100, L509.3000, L500.4050 #### Laboratory [address] [place], [address] MCH (RBC) [Entitic mass] 29.7 pg Normal 27.0-32.0 Comment on above: Performed By: #### L 500.4100, L100.0100, L509.3000, L500.4050 #### Laboratory [address] [place], [address] MCHC (RBC) [Mass/Vol] 34.0 g/dL Normal 32-36 [facility] Comment on above: Performed By: #### L 500.4100, L100.0100, L509.3000, L500.4050 #### Laboratory [address] [place], [address] MCV (RBC) [Entitic vol] 87.2 fL Normal 80-94 [facility] Comment on above: Performed By: #### L 500.4100, L100.0100, L509.3000, L500.4050 #### Laboratory [address] [place], [address] Monocytes/100 WBC (Bld) 7.3 % Normal 0-10 [facility] Comment on above: Performed By: #### L 500.4100, L100.0100, L509.3000, L500.4050 #### Laboratory [address] [place], [address] Neutrophils/100 WBC (Bld) 53.1 % Normal 47-70 Comment on above: Performed By: #### L 500.4100, L100.0100, L509.3000, L500.4050 #### Laboratory [address] [place], [address] Nucleated RBC (Bld) [#/Vol] 0 10*3/uL Normal 0-5 Comment on above: Performed By: #### L 500.4100, L100.0100, L509.3000, L500.4050 #### Laboratory [address] [place], [address] Platelet mean volume (Bld) [Entitic vol] 9.6 fL Normal 6.2-12.0 Comment on above: Performed By: #### L 500.4100, L100.0100, L509.3000, L500.4050 #### Laboratory [address] [place], [address] Platelets (Bld) [#/Vol] 244 10*3/uL Normal 150-450 Comment on above: Performed By: #### L 500.4100, L100.0100, L509.3000, L500.4050 #### Laboratory [address] [place], [address] RBC (Bld) [#/Vol] 4.92 10*6/uL Normal 4.6-6.2 [facility] Comment on above: Performed By: #### L 500.4100, L100.0100, L509.3000, L500.4050 #### Laboratory [address] [place], [address] RDW SD 39.9 fl Normal 35.1-43.9 Comment on above: Performed By: #### L 500.4100, L100.0100, L509.3000, L500.4050 #### Laboratory [address] [place], [address] WBC (Bld) [#/Vol] 5.6 10*3/uL Normal 4.4-11.0 [facility] Comment on above: Performed By: #### L 500.4100, L100.0100, L509.3000, L500.4050 #### Laboratory [address] [place], [address] Comprehensive Metabolic Prof [facility] 05-10-2024 Albumin [Mass/Vol] 4.3 g/dL Normal 3.2-5.0 [facility] Comment on above: Performed By: #### L 500.4100, L100.0100, L509.3000, L500.4050 #### Laboratory [address] [place], [address] Albumin/Globulin [Mass ratio] 1.4 {ratio} Normal 0.9-2.4 Comment on above: Performed By: #### L 500.4100, L100.0100, L509.3000, L500.4050 #### Laboratory [address] [place], [address] ALK P 73 U/L Normal 45-117 Comment on above: Performed By: #### L 500.4100, L100.0100, L509.3000, L500.4050 #### Laboratory [address] [place], [address] ALT [Catalytic activity/Vol] 41 U/L Normal 16-61 Comment on above: Performed By: #### L 500.4100, L100.0100, L509.3000, L500.4050 #### Laboratory [address] [place], [address] AST [Catalytic activity/Vol] 36 U/L Normal 15-37 Comment on above: Performed By: #### L 500.4100, L100.0100, L509.3000, L500.4050 #### Laboratory [address] [place], [address] Bilirubin [Mass/Vol] 0.90 mg/dL Normal 0.20-1.00 [facility] Comment on above: Result Comment: For patients on eltrombopag therapy, use of Dimension Poneto TBIL is not recommended. Performed By: #### L 500.4100, L100.0100, L509.3000, L500.4050 #### Laboratory [address] [place], [address] BUN/CRE 14.4 RATIO Normal 10-20 Comment on above: Performed By: #### L 500.4100, L100.0100, L509.3000, L500.4050 #### Laboratory [address] [place], [address] CA,Total 9.2 mg/dL Normal 8.5-10.1 Comment on above: Performed By: #### L 500.4100, L100.0100, L509.3000, L500.4050 #### Laboratory [address] [place], [address] Chloride [Moles/Vol] 105 mmol/L Normal 98-107 [facility] Comment on above: Performed By: #### L 500.4100, L100.0100, L509.3000, L500.4050 #### Laboratory [address] [place], [address] CO2 [Moles/Vol] 25.0 mmol/L Normal 21.0-32.0 Comment on above: Performed By: #### L 500.4100, L100.0100, L509.3000, L500.4050 #### Laboratory [address] [place], [address] Creatinine [Mass/Vol] 1.11 mg/dL Normal 0.70-1.30 [facility] Comment on above: Result Comment: The validity of the calculated GFR GFRAA in patients over 70 years has not been determined. Clinical correlation is essential. Performed By: #### L 500.4100, L100.0100, L509.3000, L500.4050 #### Laboratory [address] [place], [address] EST GFR - AA 103 mL/min Normal >60 Comment on above: Result Comment: Afri can [place] GFR Calc Performed By: #### L 500.4100, L100.0100, L509.3000, L500.4050 #### Laboratory [address] [place], [address] GAP 8 Normal 5-15 Comment on above: Performed By: #### L 500.4100, L100.0100, L509.3000, L500.4050 #### Laboratory [address] [place], [address] GFR/1.73 sq M.predicted among non-blacks MDRD (S/P/Bld) [Vol rate/Area] 85 mL/min/{1.73_m2} Normal >60 [facility] Comment on above: Result Comment: Non- GFR Calc Performed By: #### L 500.4100, L100.0100, L509.3000, L500.4050 #### Laboratory [address] [place], [address] Globulin (S) [Mass/Vol] 3.1 g/dL Normal 2.2-4.2 [facility] Comment on above: Performed By: #### L 500.4100, L100.0100, L509.3000, L500.4050 #### Laboratory [address] [place], [address] Glucose [Mass/Vol] 88 mg/dL Normal 74-106 [facility] Comment on above: Performed By: #### L 500.4100, L100.0100, L509.3000, L500.4050 #### Laboratory [address] [place], [address] Potassium [Moles/Vol] 4.2 mmol/L Normal 3.5-5.1 [facility] Comment on above: Performed By: #### L 500.4100, L100.0100, L509.3000, L500.4050 #### Laboratory [address] [place], [address] Sodium [Moles/Vol] 138 mmol/L Normal 136-145 [facility] Comment on above: Performed By: #### L 500.4100, L100.0100, L509.3000, L500.4050 #### Laboratory [address] [place], [address] T PROT 7.4 g/dL Normal 6.4-8.2 Comment on above: Performed By: #### L 500.4100, L100.0100, L509.3000, L500.4050 #### Laboratory [address] [place], [address] Urea nitrogen [Mass/Vol] 16 mg/dL Normal 7-18 Comment on above: Performed By: #### L 500.4100, L100.0100, L509.3000, L500.4050 #### Laboratory [address] [place], [address] Lipid Profileon 05-10-2024 Cholesterol [Mass/Vol] 191 mg/dL Normal 200 [facility] Comment on above: Result Comment: <200 mg/dL Desirable 200-240 mg/dL Borderline >240 mg/dL High Risk Performed By: #### L 500.4100, L100.0100, L509.3000, L500.4050 #### Laboratory [address] [place], [address] Cholesterol in HDL [Mass/Vol] 40 mg/dL Normal Comment on above: Result Comment: The drugs N-Acetylcysteine and Metamizole may falsely depress this assay. Reference Range HDL <40 mg/dL Low HDL Cholesterol HDL >or= 60 mg/dL High HDL Cholesterol Performed By: #### L 500.4100, L100.0100, L509.3000, L500.4050 #### Laboratory [address] [place], [address] Cholesterol in LDL [Mass/Vol] 126 mg/dL Normal 0-130 Comment on above: Performed By: #### L 500.4100, L100.0100, L509.3000, L500.4050 #### Laboratory [address] [place], [address] Cholesterol in VLDL [Mass/Vol] 25 mg/dL Normal 5-40 Comment on above: Performed By: #### L 500.4100, L100.0100, L509.3000, L500.4050 #### Laboratory [address] [place], [address] Triglyceride [Mass/Vol] 127 mg/dL Normal [facility] Comment on above: Result Comment: The drugs N-Acetylcysteine and Metamizole may falsely depress this assay. Serum Triglycerides Reference Interval Normal <150 mg/dL Borderline high 150 - 199 mg/dL High 200 - 499 mg/dL Very High > or = 500 mg/dL Performed By: #### L 500.4100, L100.0100, L509.3000, L500.4050 #### Laboratory [address] [place], [address] Testosterone, Serum Totalon 05-10-2024 Testosterone [Mass/Vol] 144.98 ng/dL Normal Comment on above: Result Comment: CENT RAL 90% REFERENCE RANGES MALE AGE <50 197.44 - 669.58 ng/dL MALE AGE > or = 50 187.72 - 684.19 ng/dL FEMALE AGE <50 8.38 - 35.01 ng/dL FEMALE AGE > or = 50 <7.00 - 35.92 ng/dL Effective as of 06/10/21 Performed By: #### L 500.4100, L100.0100, L509.3000, L500.4050 #### Laboratory [address] [place], [address] Absolute lymphocyte countOrd ered By: René Butts on 11-10-2023 Lymphocytes Auto (Unsp spec) [#/Vol] 1.78 10*3/uL 0.83-4.51 Basophil percentageOrdered B y: René Butts on 11-10-2023 Basophils/100 WBC (Bld) 0.9 % 0-1 [facility] Chloride [Moles/Vol] 107 mmol/L 98-107 [facility] Cholesterol [Mass/Vol] 230 mg/dL <200 [facility] Comment on above: <200 mg/dL Desirable 200-240 mg/dL Borderline >240 mg/dL High Risk Eosinophils/100 WBC (Bld) 8.6 % 0-5 Glucose [Mass/Vol] 94 mg/dL 74-106 [facility] Neutrophils (Bld) [#/Vol] 3.7 10*3/uL 2.0-7.7 Neutrophils/100 WBC (Bld) 56.1 % 47-70 Potassium [Moles/Vol] 3.7 mmol/L 3.5-5.1 [facility] Sodium [Moles/Vol] 140 mmol/L 136-145 [facility] Triglyceride [Mass/Vol] 193 mg/dL <199 [facility] Comment on above: The drugs N-Acetylcy steine and Metamizole may falsely depress this assay.Serum Triglycerides Reference Interval Normal <150 mg/dL Borderline high 150 - 199 mg/dL High 200 - 499 mg/dL Very High > or = 500 mg/dL WBC (Bld) [#/Vol] 6.5 10*3/uL 4.4-11.0 [facility] Blood erythrocytes count (nu mber/volume)Ordered By: René Butts on 11-10-2023 RBC (Bld) [#/Vol] 5.12 10*6/uL 4.6-6.2 [facility] Blood hemoglobin measurement (mass/volume)Ordered By: René Butts on 11-10-2023 Hemoglobin (Bld) [Mass/Vol] 15.4 g/dL 13.0-16.5 Blood lymphocytes/100 leukoc ytesOrdered By: René Butts on 11-10-2023 Lymphocytes/100 WBC (Bld) 27.2 % 19-41 Blood monocytes/100 leukocyt esOrdered By: René Butts on 11-10-2023 Monocytes/100 WBC (Bld) 6.9 % 0-10 [facility] Blood platelet mean volumeOr dered By: René Butts on 11-10-2023 Platelet mean volume (Bld) [Entitic vol] 9.6 fL 6.2-12.0 Determination of erythrocyte mean corpuscular volume (MCV)Ordered By: René Butts on 11-10-2023 MCV (RBC) [Entitic vol] 86.9 fL 80-94 [facility] Hematocrit Auto (Bld) [Volum e fraction]Ordered By: René Butts on 11-10-2023 Hematocrit (Bld) [Volume fraction] 44.5 % 40-54 Laboratory - Chemistry and C hemistry - challengeOrdered By: René Butts on 11-10-2023 CO2 [Moles/Vol] 26.0 mmol/L 21.0-32.0 Urea nitrogen/Creatinine [Mass ratio] 8.2 mg/mg 10-20 Laboratory - Hematology and Cell countsOrdered By: René Butts on 11-10-2023 Erythrocyte distribution width (RBC) [Entitic vol] 39.1 fL 35.1-43.9 [facility] Erythrocyte distribution width (RBC) [Ratio] 12.4 % 11.6-14.6 Immature granulocytes/100 WBC (Bld) 0.300 % 0.0-0.9 Comment on above: IG% - Immature Granu locytes (promyelocytes, myelocytes and metamyelocytes) > 1% indicates that a LEFT SHIFT is Present. MCH (RBC) [Entitic mass] 30.1 pg 27.0-32.0 Nucleated RBC/100 WBC (Bld) [Ratio] 0 % 0-5 MCHC Auto (RBC) [Mass/Vol]Or dered By: René Butts on 11-10-2023 MCHC (RBC) [Mass/Vol] 34.6 g/dL 32-36 [facility] No Panel InformationOrdered By: René Butts on 11-10-2023 Estimated GFR (MDRD) Amer 104 mL/min >60 Comment on above: GFR Calc Estimated GFR (MDRD) Non-Af Amer 86 mL/min >60 Comment on above: Non- GFR Calc Prostate Specific Antigen Total 1.15 ng/mL 0.0-4.0 Comment on above: This test was perfor med using the TPSA assay method for the[employer] chemistry system. Values obtained with differentassay methods cannot be used interchangably.When changing PSA assays in the course of monitoring apatient, additional sequential testing should be carriedout to confirm baseline values. Platelets bldOrdered By: Anahi Butts on 11-10-2023 Platelets (Bld) [#/Vol] 255 10*3/uL 150-450 Serum or plasma calcium walt urement (mass/volume)Ordered By: René Butts on 11-10-2023 Calcium [Mass/Vol] 8.7 mg/dL 8.5-10.1 [facility] Serum or plasma cholesterol in HDL measurement (mass/volume)Ordered By: René Butts on 11-10-2023 Cholesterol in HDL [Mass/Vol] 40 mg/dL >40 Comment on above: The drugs N-Acetylcy steine and Metamizole may falsely depress this assay. Reference Range HDL <40 mg/dL Low HDL Cholesterol HDL >or= 60 mg/dL High HDL Cholesterol Serum or plasma cholesterol in VLDL measurement (mass/volume)Ordered By: René Butts on 11-10-2023 Cholesterol in VLDL [Mass/Vol] 39 mg/dL 5-40 Serum or plasma creatinine m easurement (mass/volume)Ordered By: René Butts on 11-10-2023 Creatinine [Mass/Vol] 1.10 mg/dL 0.70-1.30 [facility] Comment on above: The validity of the calculated GFR & GFRAA in patients over 70 years has not been determined. Clinical correlation is essential. Serum or plasma low density lipoprotein (LDL) cholesterol measurement (mass/volume)Ordered By: René Butts on 11-10-2023 Cholesterol in LDL [Mass/Vol] 151 mg/dL 0-130 Serum or plasma urea nitroge n measurement (mass/volume)Ordered By: René Butts on 11-10-2023 Urea nitrogen [Mass/Vol] 9 mg/dL 7-18 Thin prep Papanicolaou smear with manual screeningOrdered By: René Butts on 11-10-2023 Thin prep Papanicolaou smear with manual screening 7 5-15 BASIC SEMEN ANALYSISon 12-30 Collection time (Kat) [Date/time] 1220 Normal [facility] Comment on above: Order Comment: Speci men Type: SEMINAL FLUID SPECIMEN Ordering Facility: [facility] Address: [address] [address] Result Comment: 1310 Performed By: #### B ASA #### [facility] CLIA [id number] [address] [place] [address] Color (Kat) Clear Normal [facility] Comment on above: Order Comment: Speci men Type: SEMINAL FLUID SPECIMEN Ordering Facility: [facility] Address: [address] [address] Performed By: #### B ASA #### [facility] CLIA [id number] [address] [place] [address] DATE OF ANALYSIS 12/30/2022 Normal [facility] Comment on above: Order Comment: Speci men Type: SEMINAL FLUID SPECIMEN Ordering Facility: [facility] Address: [address] [address] Performed By: #### B ASA #### [facility] CLIA [id number] [facility] [place] [address] PARTNER INFORMATION Routine semen analysis Normal [facility] Comment on above: Order Comment: Speci men Type: SEMINAL FLUID SPECIMEN Ordering Facility: [facility] Address: [address] [address] Performed By: #### B ASA #### [facility] CLIA [id number] [address] [place] [address] pH (Kat) 7.2 Normal >=7.2 [facility] Comment on above: Order Comment: Speci men Type: SEMINAL FLUID SPECIMEN Ordering Facility: [facility] Address: [address] [address] Performed By: #### B ASA #### [facility] CLIA [id number] [address] [place] [address] Round cells (Kat) [#/Vol] 0.00 M/mL Normal <1.00 [facility] Comment on above: Order Comment: Speci men Type: SEMINAL FLUID SPECIMEN Ordering Facility: [facility] Address: [address] [place] [address] Performed By: #### B ASA #### [facility] CLIA [id number] [address] [place] [address] SEMEN COMMENT 2 Partner=Kroi Fraser Normal [facility] Comment on above: Order Comment: Speci men Type: SEMINAL FLUID SPECIMEN Ordering Facility: [facility] Address: [address] [address] Performed By: #### B ASA #### [facility] CLIA [id number] [facility] [place] [address] Sexual abstinence duration [Time] 3.0 Days [facility] Comment on above: Order Comment: Speci men Type: SEMINAL FLUID SPECIMEN Ordering Facility: [facility] Address: [address] [address] Performed By: #### B ASA #### [facility] CLIA [id number] [address] [place] [address] Specimen volume (Kat) 4.20 mL Normal >=1.50 [facility] Comment on above: Order Comment: Speci men Type: SEMINAL FLUID SPECIMEN Ordering Facility: [facility] Address: [address] [address] Performed By: #### B ASA #### [facility] CLIA [id number] [address] [place] [address] Spermatozoa (Kat) [#/Vol] 0.00 M/mL Low >=15.00 [facility] Comment on above: Order Comment: Speci men Type: SEMINAL FLUID SPECIMEN Ordering Facility: [facility] Address: [address] [place] [address] Result Comment: 0.00 Performed By: #### B ASA #### [facility] CLIA [id number] [address] [place] [address] Spermatozoa Motile/100 spermatozoa (Kat) 0 % Low >=40 [facility] Comment on above: Order Comment: Speci men Type: SEMINAL FLUID SPECIMEN Ordering Facility: [facility] Address: [address] [address] Performed By: #### B ASA #### [facility] CLIA [id number] [address] [place] [address] Spermatozoa Normal/100 spermatozoa (Kat) Normal [facility] Comment on above: Order Comment: Speci men Type: SEMINAL FLUID SPECIMEN Ordering Facility: [facility] Address: [address] [address] Result Comment: Insu fficient quantity to assess morphology Performed By: #### B ASA #### [facility] CLIA [id number] [address] [place] [address] TIME TO ANALYSIS 50 Minutes Normal 0-60 [facility] Comment on above: Order Comment: Speci men Type: SEMINAL FLUID SPECIMEN Ordering Facility: [facility] Address: [address] [address] Performed By: #### B ASA #### [facility] IA [id number] [address] [place] [address] TOTAL MOTILE SPERM 0.00 M Normal [facility] Comment on above: Order Comment: Speci men Type: SEMINAL FLUID SPECIMEN Ordering Facility: [facility] Address: [address] [address] Performed By: #### B ASA #### [facility] CLIA [id number] [address] [place] [address] Viscosity Ql (Kat) Normal Normal [facility] Comment on above: Order Comment: Speci men Type: SEMINAL FLUID SPECIMEN Ordering Facility: [facility] Address: [address] [address] Performed By: #### B ASA #### [facility] IA [id number] [address] [place] [address] CNOVon 12-30-2022 CNOV Office Visit (ANDRBA) ---- WADE MCNAMARA ([id number]) 1995 M Date Time Provider Department 12/30/22 1:00 PM ANDROLOGY OFFSET PRESS OPERATOR SOFI LANDAVERDE During your visit today, we recorded the following information about you: Tab Dixon 12/30/2022 2:52 PM Signed Routine semen analysis. Tab Dixon Referring Provider: RENÉ BUTTS [[id number]] Allergies As of Date: 12/30/2022 Noted Allergy Reaction PENICILLINS 12/01/2005 2 - Rash Date Reviewed: 05/30/2022 Reviewed by: Carin Dsouza RN - Fully Assessed Visit Diagnosis:Encounter for fertility testing [Z31.41] Order(s):BASIC SEMEN ANALYSIS [SQBASA] Order #: [id number]. #:[id number] y: 1 Prescriptions as of 12/30/2022 - testosterone cypionate 200 mg/mL kit Inject intramuscularly one time a week. - rosuvastatin (CRESTOR) 5 mg tablet Take 5 mg by mouth once daily. - naproxen (NAPROSYN) 500 mg tablet Take 1 tablet by mouth twice daily as needed (pain/inflammation, take with food.). - albuterol HFA (PROVENTIL HFA, VENTOLIN HFA) 90 mcg/actuation inhaler Inhale 2 Puffs as instructed every 4 hours as needed. - omeprazole 20 mg capsule Take 1 capsule by mouth once daily. - albuterol 90 mcg/actuation aero Inhale 2 Puffs as instructed four times daily as needed. FOR WHEEZING AND SHORTNESS OF BREATH. - fluticasone (FLOVENT HFA) 44 mcg/actuation inhaler Inhale 2 Puffs as instructed twice daily. 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 Author Type: Technologist Type: Allied Health Filed: 05/30/2022 9:13 PM Note Text: Radiology Service Progress Note PATIENT NAME: Wade Mcnamara DATE OF SERVICE: May 30, 2022 TIME: 9:13 PM PATIENT IDENTITY VERIFICATION COMPLETED USING TWO (2) IDENTIFIERS: Name and Date of confirmed by patient verbally. FALL SCREENING: Has the patient had 2 falls in the last year or 1 fall with injury or currently using an Ambulatory Assistive Device (Walker, Cane, Wheelchair, Crutches, etc.)? Emergency Room Patient: Screened in ED PATIENT GENDER DATA: Male PATIENT RELEVANT IMPLANT DATA REVIEWED: Not Applicable RADIOLOGY DEPARTMENT: General X-ray: Exam(s) Completed: Lower Extremity X-Ray(s): Ankle, Right PERIPHERAL IV DATA: Not applicable SIGNED BY: CHLOE Koehler May 30, 2022 9:[address] [facility] ED NOTEon 05-30-2022 ED NOTE HNO ID: [id number] Author: Adore Hummel RN Service: Nursing Author Type: Registered Nurse Type: ED Notes Filed: 05/30/2022 9:55 PM Note Text: Aircast and jordan wrap applied to patients R ankle prior to discharge. Discharge teaching was completed by this RN with patient. Her verbalized understanding of RICE and follow up with orthopedics if pain worsens or continues. No IV in place. VSS. Patient ambulatory at time of d/c. [facility] ED NOTE HNO ID: [id number] Author: Carin Dsouza RN Service: ? Author Type: Registered Nurse Type: ED Notes Filed: 05/30/2022 9:07 PM Note Text: Portable xray at bedside. [facility] ED NOTE HNO ID: [id number] Author: Carin Dsouza RN Service: ? Author Type: Registered Nurse Type: ED Notes Filed: 05/30/2022 8:48 PM Note Text: Pt given ice pack and positioned for comfort. [facility] ED NOTE HNO ID: [id number] Author: Carin Dsouza RN Service: ? Author Type: Registered Nurse Type: ED Notes Filed: 05/30/2022 8:46 PM Note Text: Pt to DD with c/c right ankle injury while playing basketball, pt states he jumped and landed on his right ankle which rolled inward making a pop sound, pt has swelling to ankle. No pain medications taken prior to arrival. [facility] ED PROV NOTEon 05-30-2022 ED PROV NOTE HNO ID: [id number] Author: Yocasta Tom PA-C Service: ? Author Type: Physician Plant Physiologist Type: ED Provider Notes Filed: 05/30/2022 10:32 PM Note Text: ED Provider Note Patient Name: Wade Mcnamara : 1995 SERVICE DATE: 05/30/22 History No chief complaint on file. 26 year old male presents to ED c/o right ankle pain. Pt was playing basketball, came down from jumping and rolled his right ankle. C/o pain, swelling. Denies numbness, tingling. 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 by: Medical records and patient PAST MEDICAL HISTORY Diagnosis Date - Adjustment reaction 2011 - Asthma Exercise induced - Pneumonia 10/23 PAST SURGICAL HISTORY Procedure Laterality Date - CIRCUMCISION,CLAMP, - PAST SURGICAL HISTORY OF 03/2014 BB removal upper lip FAMILY HISTORY Problem Relation Age of Onset - Heart Maternal Grandmother - Diabetes Unknown paternal side - Hypertension Mother - other (high cholesterol [Other]) Mother - other (high cholsterol [Other]) Maternal Grandmother - other (high cholesterol [Other]) Maternal Grandfather - Thyroid Mother - Asthma Father Social History Tobacco Use - Smoking status: Never Smoker - Smokeless tobacco: Never Used Substance and Sexual Activity - Alcohol use: No - Drug use: No - Sexual activity: Never ALLERGIES Allergen Reactions - Penicillins Rash Review of Systems Constitutional: Negative for chills and fever. HENT: Negative. Respiratory: Negative. Cardiovascular: Negative. Musculoskeletal: Positive for arthralgias and joint swelling. Skin: Negative. Neurological: Negative. Hematological: Negative. Psychiatric/Behavio ral: Negative. Physical Exam Vitals BP Pulse Temp Temp src Resp SpO2 Weight Height -- -- -- -- -- -- -- -- Physical Exam Vitals and nursing note reviewed. Constitutional: Appearance: Normal appearance. HENT: Head: Normocephalic and atraumatic. Mouth/Throat: Mouth: Mucous membranes are moist. Eyes: Extraocular Movements: Extraocular movements intact. Conjunctiva/sclera: Conjunctivae normal. Pupils: Pupils are equal, round, and reactive to light. Cardiovascular: Rate and Rhythm: Normal rate and regular rhythm. Pulses: Normal pulses. Heart sounds: Normal heart sounds. Pulmonary: Effort: Pulmonary effort is normal. Breath sounds: Normal breath sounds. Musculoskeletal: Cervical back: Normal range of motion. Comments: Bilateral malleolar tenderness right ankle. Some lateral swelling noted. No metatarsal tenderness. Dorsiflexion and plantar flexion intact. Skin: General: Skin is warm and dry. Capillary Refill: Capillary refill takes less than 2 seconds. Neurological: Mental Status: He is alert and oriented to person, place, and time. Sensory: No sensory deficit. Motor: No weakness. Gait: Gait normal. Diagnostic Testing ED Labs Ordered and Reviewed - No data to display XR ANKLE GENERAL 3V AP/LAT/OBL RIGHT Final Result IMPRESSION: No acute fracture or dislocation. Mild soft tissue swelling at the lateral malleolus. This is nonspecific and possibly related to ligamentous injury. Please correlate clinically. Parts Department Manager: PSCB Transcribe Date/Time: May 30 2022 9:26P Dictated by : ADORE PALMER MD This examination was interpreted and the report reviewed and electronically signed by: ADORE PALMER MD on May 30 2022 9:27PM EST Procedures ED Course / Clinical Impression Clinical Impressions as of 05/30/22 2230 Ankle sprain Acute right ankle pain MDM / Disposition / Plan Course: 26 year old male presents c/o right ankle pain. Vital signs were reviewed. Triage records were reviewed. Medical records were reviewed. Nursing notes were reviewed and incorporated. Right ankle pain after rolling his ankle playing basketball. Tender on exam, neurovascularly intact. Tylenol and motrin given. XR shows soft tissue swelling, no fracture. Discussed with pt. Jordan wrap and air cast given. Continue rice, supportive care, and follow up with PCP. Strict return precautions discussed. The patient was DISCHARGED: Counseled patient regarding suspected diagnosis AND need for follow-up. Discharged home with verbal and written instructions. They were instructed to return as needed for persistent or worsening symptoms or any new concerns. Condition at time of disposition: stable SIGNATURE: MALATHI Farris PA-C 05/30/222231 Normal [facility] XR ANKLE 3V AP/LAT/OBL RTon 05-30-2022 XR ANKLE 3V AP/LAT/OBL RT * * *Final Rep ort* * * DATE OF EXAM: May 30 2022 9:13PM MDX [id number] - XR ANKLE 3V AP/LAT/OBL RT / PROCEDURE REASON: Ankle pain, no prior imaging * * * * Physician Interpretation * * * * EXAMINATION: XR ANKLE 3V AP/LAT/OBL RT HISTORY: rolled ankle jummping durring basketball today Ankle pain, no prior imaging. TECHNIQUE: XR ANKLE 3V AP/LAT/OBL RT Laterality: RIGHT Number of different views (projections): 3 M: XB_1 COMPARISON: None RESULT: Normal anatomic alignment. No acute fracture or dislocation. Ankle mortise is intact. No suspicious osseous lesions. Joint spaces are maintained. Mild soft tissue swelling at the lateral malleolus. No other significant abnormality. IMPRESSION: No acute fracture or dislocation. Mild soft tissue swelling at the lateral malleolus. This is nonspecific and possibly related to ligamentous injury. Please correlate clinically. Parts Department Manager: PSCB Transcribe Date/Time: May 30 2022 9:26P Dictated by : ADORE PALMER MD This examination was interpreted and the report reviewed and electronically signed by: ADORE PALMER MD on May 30 2022 9:27PM EST [id number] Normal [facility] Testost SerPl-mCncon 28-2 022 Testosterone [Mass/Vol] 727 ng/dL Normal 193-824 M [facility] Comment on above: Order Comment: Speci men Type: BLOOD SPECIMEN [facility] , [place] [address] Result Comment: A te stosterone level in the 193-320 ng/dL range with associated clinical symptoms is considered low and may indicate hypogonadism (from [facility] 2010 363:123-135). Results >320 ng/dL are considered normal. Performed By: #### 2 [id number] #### [facility] CLIA [id number] [address] [id number] [place] Basophil percentageon 2021 Testosterone [Mass/Vol] 258.81 ng/dL Work Phone: Comment on above: CENTRAL 90% REFERENC E RANGES MALE AGE <50 197.44 - 669.58 ng/dL MALE AGE > or = 50 187.72 - 684.19 ng/dL FEMALE AGE <50 8.38 - 35.01 ng/dL FEMALE AGE > or = 50 <7.00 - 35.92 ng/dL Effective as of 06/10/21 Basic Metabolic Panlon 11-13 Anion gap [Moles/Vol] 11 mmol/L Normal 9-18 [facility] Calcium [Mass/Vol] 9.9 mg/dL Normal 8.5-10.2 [facility] Chloride [Moles/Vol] 101 mmol/L Normal 97-105 [facility] CO2 [Moles/Vol] 26 mmol/L Normal 22-30 [facility] Creatinine [Mass/Vol] 0.96 mg/dL Normal 0.73-1.22 [facility] eGFR- Amer. >60 Normal [facility] GFR/1.73 sq M predicted among non-blacks MDRD (S/P/Bld) [Vol rate/Area] mL/min/{1.73_m2} Normal [facility] Glucose [Mass/Vol] 93 mg/dL Normal 74-99 [facility] Potassium [Moles/Vol] 4.6 mmol/L Normal 3.7-5.1 [facility] Sodium [Moles/Vol] 138 mmol/L Normal 136-144 [facility] Urea nitrogen [Mass/Vol] 15 mg/dL Normal 9-24 [facility] Lipid Panel, Basicon 020 Cholesterol [Mass/Vol] 284 mg/dL High <200 [facility] Cholesterol in HDL [Mass/Vol] 48 mg/dL Normal >39 [facility] Cholesterol in LDL [Mass/Vol] 190 mg/dL High <100 [facility] Cholesterol in VLDL [Mass/Vol] 46 mg/dL High <30 [facility] Cholesterol non HDL [Mass/Vol] 236 mg/dL High <130 [facility] LDL:HDL Ratio 3.96 High <2.54 [facility] TC:HDL Ratio 5.92 High <5.10 [facility] Triglyceride [Mass/Vol] 232 mg/dL High <150 [facility] Fasting Time 13 hrs Normal [facility] Encounters Encounter Date Encounter Type Care Provider Facility Start: 03-01-2025 End: 03-01-[address] René Butts MD Work Phone: Work Phone: Start: 03-01-2025 End: 03-01-[address] René Butts MD -[facility] Start: 03-01-2025 End: 03-01-2025 ambulatory René Butts Facility: Start: 10-25-2024 End: 10-25-2024 ambulatory René Butts Facility: Start: 06-22-2024 End: 06-22-2024 ambulatory René Butts Facility: Start: 05-10-2024 End: 05-10-[facility] Start: 11-10-2023 End: 11-10-2023 ambulatory Work Phone: Start: 11-10-2023 End: 11-10-2023 Patient encounter procedure -[facility] Start: 12-30-2022 End: 12-30-2022 Orders Only Lizbeth Chacon PA-C Work Phone: [facility] Comment on above: Encounter for fertil ity testing (Primary Dx) Encounter for fertil ity testing Start: 01-30-2022 End: 01-30-2022 Patient encounter procedure -[facility] Plan of Treatment Date Care Activity Detail Author Start: 12-30-2022 End: 03-01-2023 BASIC SEMEN ANALYSIS [facility] Work Phone: Comment on above: Expected: 12/30/2022 , Expires: 03/01/2023 Start: 11-15-2022 DEPRESSION ASSESSMENT DEPRESSION ASS ESSMENT [facility] Start: 07-16-2022 Influenza vaccination INFLUENZA (#1) [facility] Start: 05-05-2020 Urine microalbumin profile DTAP,TDAP,TD (7 - Td or Tdap) [facility] Start: 2015 ANNUAL PCP TEAM INSTRUMENT REPAIRER STEAM PLANT SAMMI DISEASE VISIT ANNUAL PCP TEAM CHRONIC DISEASE VISIT [facility] Start: 2015 HEPATITIS C SCREENING HEPATITIS C SC REENING [facility] Start: 2015 HIV SCREENING HIV SCREENING [facility] Start: 2015 SPIROMETRY SPIROMETRY [facility] Start: 02-26-2015 HPV VACCINE (2 - Mal e 3-dose series) HPV VACCINE (2 - Male 3-dose series) [facility] Start: 2011 PEDS TO ADULT TRANSITION ANNUAL ASSESSMENT PEDS TO ADULT TRANSITION ANNUAL ASSESSMENT [facility] Start: 2009 PEDS TO ADULT TRANSITION INITIAL DISCUSSION PEDS TO ADULT TRANSITION INITIAL DISCUSSION [facility] Start: 2003 PNEUMOCOCCAL (1 - PCV) PNEUMOCOCCAL (1 - PCV) [facility] Start: 06-03-1998 COVID-19 VACCINE (#1) COVID-19 VACCI NE (#1) [facility] Testosterone Free [Mass/volume] in Serum or Plasma Testosterone measurement [facility] Immunizations Immunization Date Immunization Notes Care Provider Epifanio del rosario 01-29-2015 human papilloma viru s vaccine, quadrivalent Lizbeth Smolen PA-C Work Phone: [facility] 01-29-2015 meningococcal polysaccharide (groups A, C, Y and W-135) diphtheria toxoid conjugate vaccine (MCV4P) Lizbeth Smolen PA-C Work Phone: [facility] 01-29-2015 varicella virus vaccine Iryn a Smolen PA-C Work Phone: [facility] 09-21-2014 influenza, injectabl e, quadrivalent, preservative free Lizbeth Smolen PA-C Work Phone: [facility] 12-05-2013 influenza virus vacc ine, unspecified formulation Lizbeth Smolen PA-C Work Phone: [facility] 10-27-2012 influenza virus vacc ine, unspecified formulation Lizbeth Smolen PA-C Work Phone: [facility] 09-22-2011 influenza virus vacc ine, unspecified formulation Lizebth Smolen PA-C Work Phone: [facility] 05-05-2010 Meningococcal, MCV4, unspecified conjugate formulation(groups A, C, Y and W-135) Lizbeth Smolen PA-C Work Phone: [facility] 05-05-2010 tetanus toxoid, redu margarita diphtheria toxoid, and acellular pertussis vaccine, adsorbed Lizbeth Smolen PA-C Work Phone: [facility] 05-25-2002 diphtheria, tetanus toxoids and acellular pertussis vaccine Lizbeth Smolen PA-C Work Phone: [facility] Work Phone: 05-25-2002 measles, mumps and rubella virus vaccine Lizbeth Smolen PA-C Work Phone: [facility] Work Phone: 05-25-2002 poliovirus vaccine, inactivated Lizbeth Smolen PA-C Work Phone: [facility] Work Phone: 04-13-2001 varicella virus vaccine Iryn a Smolen PA-C Work Phone: [facility] Work Phone: 06-10-2000 diphtheria, tetanus toxoids and acellular pertussis vaccine Lizbeth Smolen PA-C Work Phone: [facility] Work Phone: 06-10-2000 haemophilus influenz ae type b vaccine, HbOC conjugate Lizbeth Smolen PA-C Work Phone: [facility] Work Phone: 03-21-1999 measles, mumps and rubella virus vaccine Lizbeth Smolen PA-C Work Phone: [facility] Work Phone: 10-25-1998 diphtheria, tetanus toxoids and acellular pertussis vaccine Lizbeth Smolen PA-C Work Phone: [facility] Work Phone: 10-25-1998 haemophilus influenz ae type b vaccine, HbOC conjugate Lizbeth Smolen PA-C Work Phone: [facility] Work Phone: 10-25-1998 trivalent poliovirus vaccine, live, oral Lizbeth Smolen PA-C Work Phone: [facility] Work Phone: 06-06-1998 diphtheria, tetanus toxoids and acellular pertussis vaccine Lizbeth Smolen PA-C Work Phone: [facility] Work Phone: 06-06-1998 haemophilus influenz ae type b vaccine, HbOC conjugate Lizbeth Smolen PA-C Work Phone: [facility] Work Phone: 06-06-1998 hepatitis B vaccine, pediatric or pediatric/adolescent dosage Lizbeth Smolen PA-C Work Phone: [facility] Work Phone: 06-06-1998 trivalent poliovirus vaccine, live, oral Lizbeth Smolen PA-C Work Phone: [facility] Work Phone: 02-18-1998 diphtheria, tetanus toxoids and acellular pertussis vaccine Lizbeth Smolen PA-C Work Phone: [facility] Work Phone: 02-18-1998 haemophilus influenz ae type b vaccine, HbOC conjugate Lizbeth Smolen PA-C Work Phone: [facility] Work Phone: 02-18-1998 hepatitis B vaccine, pediatric or pediatric/adolescent dosage Lizbeth Smolen PA-C Work Phone: [facility] Work Phone: 02-18-1998 trivalent poliovirus vaccine, live, oral Lizbeth Yorkgarett SERVIN Work Phone: [facility] Work Phone: 1997 hepatitis B vaccine, pediatric or pediatric/adolescent dosage Lizbeth Yorkgarett PAREDES-C Work Phone: [facility] Work Phone: Payers Date Payer Category Payer Unknown [id number] 2024 Self-pay [id number] 2024 Unknown [id number] 2021 Unknown [id number] [facility] and others) [id number] Unknown [facility] [id number] Unknown [id number] Unknown [id number] Unknown [id number] Unknown [id number] Social History Date Type Detail Facility Start: 09-09-2020 End: 09-09-2020 Tobacco smoking status CAIS Unknown if ever smoked Start: 1995 Sex Assigned At Male [facility] Start: 01-29-2015 End: 09-09-2020 Tobacco smoking status NHIS Never smoked tobacco [facility] Work Phone: Start: 01-29-2015 Tobacco use and exposure Smokeless tobacco non-user [facility] Work Phone: Start: 07-01-2022 Alcohol intake Current non-dr administrative support coordinator of alcohol (finding) [facility] Start: 1995 Sex Assigned At Not on file [facility] Start: 03-02-2025 Sex Male (finding) Progress note 12-30-2022 Note Date & Type Note Facility 12-30-2022 Note HNO ID: [id number] Author: Tab Dixon Service: ? Author Type: Consultant Rn Type: Progress Notes Filed: 12/30/2022 2:52 PM Note Text: Routine semen analysis. Tab Dixon [facility] Progress note 12-30-2022 Note Date & Type Note Facility 12-30-2022 Note HNO ID: [id number] Author: Lizbeth Chacon PA-C Service: ? Author Type: Physician Plant Physiologist Type: Progress Notes Filed: 12/30/2022 2:21 PM Note Text: Placed SA order. Original outside order can be found under scanned. Lizbeth Chacon PA-C December 30, 2022 2:21 PM [facility] History of Present illness Narrative 12-30-2022 Tab Dixon - 12/30/2022 2:51 PM EST Note Date & Type Note Facility 12-30-2022 History of Presen t illness Narrative Routine semen analysis. Tab Dixon documented in this encounter [facility] History of Present illness Narrative 12-30-2022 Lizbeth Chacon PA-C - 12/30/2022 2:19 PM EST Note Date & Type Note Facility 12-30-2022 History of Presen t illness Narrative Placed SA order. Original outside order can be found under scanned. Lizbeth Chacon PA-C December 30, 2022 2:21 PM documented in this encounter [facility] History of Past illness Narrative 2010 Note Date & Type Note Facility 2010 History of Past i llness Narrative Problem Noted Date Resolved Date Wrist pain 2010 01/29/2015 documented as of this encounter (statuses as of 12/31/2022) [facility] History of Past illness Narrative 2010 Note Date & Type Note Facility 2010 History of Past i llness Narrative Problem Noted Date Resolved Date Wrist pain 2010 01/29/2015 documented as of this encounter (statuses as of 12/31/2022) [facility] Evaluation note Note Date & Type Note Facility Evaluation note No assessment information availa ble Work Phone: Evaluation note Note Date & Type Note Facility Evaluation note Diagnosis Encounter for fertility testing- Primary Fertility testing documented in this encounter [facility] Evaluation note Note Date & Type Note Facility Evaluation note Diagnosis Encounter for fertility testing Fertility testing documented in this encounter [facility] Reason for referral (narrative) Note Date & Type Note Facility Reason for referral (narrative) No reason for referral information available Work Phone: Summary Purpose Family History No Family History Records FoundNo Family History Records FoundNo Family History Records FoundNo Family History Records Found Advance Directives No Advanced Directives Records Found Advance Directive Response Recorded Date/ Time Advance Directives No March 23, 2014 1:13pm Living Will No March 23, 2014 1: 13pm Power of Swatch Folder No March 23, 2014 1:13pm Advance Directive Response Recorded Date/ Time Advance Directives No March 23, 2014 12:13pm Living Will No March 23, 2014 12 :13pm Power of Swatch Folder No March 23, 2014 12:13pm Advance Directive Response Recorded Date/ Time Advance Directives No March 23, 2014 1:13pm Additional Source Comments (unrecognized sect ion and content) No Status Records FoundNo Status Records FoundNo Status Records FoundNo Status Records Found INFORMATION SOURCE (unrecogn ized section and content) DATE CREATED AUTHOR 11/14/2020 [facility] DATE CREATED AUTHOR AUTHOR'S ORGANIZ ATION 06/04/2022 [facility] DATE CREATED AUTHOR AUTHOR'S ORGANIZ ATION 01/03/2023 [facility] DATE CREATED AUTHOR AUTHOR'S ORGANIZ ATION 03/03/[address] [facility] Goals (unrecognized section and content) Goals may be documented in a n alternate sectionGoals may be documented in an alternate sectionGoals may be documented in an alternate section Source Comments (unrecognize d section and content) In the event this informatio n is protected by the Federal Confidentiality of Alcohol and Drug Abuse Patient Records regulations: The Federal rules restrict any use of the information to criminally investigate or prosecute any alcohol or drug abuse patient.[facility] the event this information is protected by the Federal Confidentiality of Alcohol and Drug Abuse Patient Records regulations: The Federal rules restrict any use of the information to criminally investigate or prosecute any alcohol or drug abuse patient.[facility] Reason for Visit (unrecogniz ed section and content) Specialty Diagnoses / Procedures Referred By Contact Referred To Contact [facility] Diagnoses Fertility testing Procedures SEMEN ANAL VOL/COUNT/MOT René Butts MD [address] [facility] [address] [place] [address] [facility] [address] [place] [address] Referral ID Status Reason Start Date Expiration Date V isits Requested Visits Authorized [id number] Closed Financial Clearance Required - Self Pay Patient Cleared - True Self-Pay required payment collected Do Not Bill Insurance - SP patient 11/25/2022 02/23/2023 1 1 Care Teams (unrecognized sec tion and content) Team Status: Active Member Role Status Dates Dr. Wade Martin DO Family Provider Active Dr. René Butts MD Primary Care Provider Active Team Status: Inactive Member Role Status Dates Dr. René Butts MD Primary Care Provider, Attending Provider Active Team Status: Inactive Member Role Status Dates Dr. René Butts MD Primary Care Provider Active Start: March 01, 2025 End: March 01, 2025 Dr. René Butts MD Attending Provider Active Start: March 01, 2025 End: March 01, 2025 Dr. René Butts MD Referring Provider Active Start: March 01, 2025 End: March 01, 2025 FOR RECORDS PERTAINING TO PATIENTS WHO ARE OR HAVE BEEN ENROLLED IN A CHEMICAL DEPENDENCY/SUBSTANCEABUSE PROGRAM, SOME INFORMATION MAY BE OMITTED. This clinical summary was aggregated from multiple sources. Caution should be exercised in using it in the provision of clinical care. This summary normalizes information from multiple sources, and as a consequence, information in this document may materially change the coding, format and clinical context of patient data. In addition, data may be omitted in some cases. CLINICAL DECISIONS SHOULD BE BASED ON THE PRIMARY CLINICAL RECORDS. [email or web address] provides no warranty or guarantee of the accuracy or completeness of information in this document.
[2025-10-19 17:55] LABS: Hematocrit 43.7 % (40-54); Hemoglobin 15.6 g/dL (13.0-16.5); Immature Granulocytes Count 0.010 X10^3/uL (0.0-0.0); Mean Corp Hgb Conc 35.7 g/dL (32-36); Mean Corpuscular Volume 85.2 fL (80-94); Mean Platelet Vol. 9.7 fl (6.2-12.0); NRBC Flagged by Analyzer 0 % (0-5); Platelet Count 254 K/mm3 (150-450); RBC Distribution Width CV 11.9 % (11.6-14.6); RBC Distribution Width SD 36.2 fl (35.1-43.9); Red Blood Count 5.13 M/mm3 (4.6-6.2); White Blood Count 5.9 K/mm3 (4.4-11.0)
[2025-10-19 18:05] LABS: AST(SGOT) 36 U/L (<=37); Alanine Aminotransfer ALT/SGPT 55 U/L (<=46); Albumin, Serum 4.5 g/dL (3.5-5.0); Alkaline Phosphatase 73 U/L (40-129); Anion Gap 11 (5-15); BUN 12 mg/dL (4-19); BUN/Creat Ratio 11.5 RATIO (10-20); Calcium,Total 9.4 mg/dL (7.6-11.0); Carbon Dioxide 23.1 mmol/L (21.0-32.0); Chloride 103 mmol/L (98-108); Globulin 2.5 g/dL (2.2-4.2); Glucose 92 mg/dL (70-99); Potassium 4.0 mmol/L (3.3-5.1)
[2025-10-19 19:09] LABS: Cholesterol 178 mg/dL (<=200); Low Density Lipoprotein Calc. 106 mg/dL; Triglycerides 202 mg/dL; Very Low Density Lipoprotein 40 mg/dL (5-40); cholesterol:hdl ratio screen 4.86
== END | disposition home or self-care (01) ==
LOC: MFPLAB 14:16
PROVIDERS: PCP Family Medicine; Visit Provider Family Medicine
DX: R68.82 Decreased libido (principal); E78.5 Hyperlipidemia, unspecified
CPT/HCPCS: 36415; 80053; 80061; 84403; 85025